=== PATIENT | female | born 1945 | race Caucasian/White ===

== ENCOUNTER → 2016-05-31 | Outpatient (REF) | payer MEDICARE ==
[~2016-05-31] MED LIST: AMBI5TAB PO; ASPI1TAB PO; CALC600T7 PO; GABA300C3 PO; GLIM2TA PO; GLUCTAB PO; IBUP60TA PO; LABE30TA PO; OXYC1TAB15 PO; OXYC1TAB23 PO; PAXI10TA2 PO; PAXI20TA3 PO; PROTPAK PO; SOMA350T PO; VITA400C35 PO; VITA500C24 PO; ZOCO40TA PO
[2016-05-31 13:27] LABS: ALBUMIN 4.3 GM/DL (3.2-5.2); ALBUMIN/GLOBULIN RATIO 1.54 (1.00-1.93); ALKALINE PHOSPHATASE 111 U/L (45-117); ALT/SGPT 21 U/L (12-78); ANION GAP 9 MEQ/L (8-16); AST/SGOT 14 U/L (15-37); BILIRUBIN,TOTAL 0.6 MG/DL (0.2-1.0); BLOOD UREA NITROGEN 22 MG/DL (7-18); CALCIUM LEVEL 9.7 MG/DL (8.8-10.2); CARBON DIOXIDE LEVEL 28 MEQ/L (21-32); CHLORIDE LEVEL 107 MEQ/L (98-107); CREATININE FOR GFR 0.85 MG/DL (0.55-1.02); GLOMERULAR FILTRATION RATE > 60.0 (>45); GLUCOSE, FASTING 108 MG/DL (80-110); POTASSIUM SERUM 4.4 MEQ/L (3.5-5.1); SODIUM LEVEL 144 MEQ/L (136-145); TOTAL PROTEIN 7.1 GM/DL (6.4-8.2)
== END ==
LOC: M SFHCPLAZ 08:12
PROVIDERS: ATTEND Family Medicine
DX: E55.9 Vitamin D deficiency, unspecified (principal); E11.9 Type 2 diabetes mellitus without complications; I10 Essential (primary) hypertension

== ENCOUNTER → 2016-06-07 | Outpatient (REF) | payer MEDICARE | LOC: M SFHCPLAZ 11:14 | PROVIDERS: ATTEND Family Medicine ==

== ENCOUNTER → 2016-06-08 | Outpatient (CLI) | payer MEDICARE | LOC: M PAIN 14:20 | PROVIDERS: ATTEND Nurse Practitioner Family | DX: Z09 Encounter for follow-up examination after completed treatment for conditions other than malignant neoplasm (principal); G89.29 Other chronic pain; M47.816 Spondylosis without myelopathy or radiculopathy, lumbar region; I10 Essential (primary) hypertension; E78.5 Hyperlipidemia, unspecified; E11.9 Type 2 diabetes mellitus without complications; F32.9 Major depressive disorder, single episode, unspecified; F41.9 Anxiety disorder, unspecified; M50.30 Other cervical disc degeneration, unspecified cervical region; E66.9 Obesity, unspecified; Z68.26 Body mass index [BMI] 26.0-26.9, adult; M85.80 Other specified disorders of bone density and structure, unspecified site; E55.9 Vitamin D deficiency, unspecified; M16.12 Unilateral primary osteoarthritis, left hip; M48.06 Spinal stenosis, lumbar region; M51.27 Other intervertebral disc displacement, lumbosacral region; Z88.8 Allergy status to other drugs, medicaments and biological substances; Z79.82 Long term (current) use of aspirin; Z79.1 Long term (current) use of non-steroidal anti-inflammatories (NSAID); Z79.891 Long term (current) use of opiate analgesic; Z79.84 Long term (current) use of oral hypoglycemic drugs; Z79.899 Other long term (current) drug therapy; Z86.73 Personal history of transient ischemic attack (TIA), and cerebral infarction without residual deficits; Z87.891 Personal history of nicotine dependence ==

== ENCOUNTER → 2016-08-15 | Outpatient (CLI) | payer MEDICARE ==
--- NOTE | 2016-08-15 23:50 | ECWPNPC ---
PATIENT NAME: MAXI FELICIANO : 1945 GENDER: FEMALE VISIT DATE: 08/15/2016 DISCHARGE DATE: 08/15/16 1536 VISIT LOCKED DATE TIME: PHYSICIAN: ALEXIS QUINTERO PHYSICIAN PAGER NO: [phone] RESOURCE: ALEXIS QUINTERO HISTORY OF PRESENT ILLNESS HISTORY OF PRESENT ILLNESS: PAIN THE PATIENT DESCRIBES THE PAIN... THE PATIENT DESCRIBES THE PAIN... THE PATIENT DESCRIBES THE PAIN... THE PATIENT DESCRIBES THE PAIN... THE PATIENT DESCRIBES THE PAIN... HERE FOR F/U AND MANAGEMENT OF PERSISTENT LEFT HIP AND LEG PAIN.USING PERCOCET7.5/325 1 TAB Q6H PRN FOR SEVERE PAIN THAT SHE FINDS HELPFUL.DENIES SIDE EFFECTS. ALSO USES ROBAXIN PRN WITH IMPROVEMENT WITH SLEEP.PATIENT IS UNABLE TO TOLERATE ANY WEIGHT ON LEFT LEG AND IS WHEELCHAIR DEPENDENT. .BEING EVALUATED AT DR. MANUEL FOR BOTOX .RATING PAIN VAS 6/10. FALL RISK SCREENING: SCREENING :NO FALLS IN THE PAST YEAR CURRENT MEDICATIONS TAKING ASPIRIN 81 MG TABLET CHEWABLE 1 TABLET ORALLY ONCE A DAY TAKING VITAMIN E 400 UNIT CAPSULE 1 TABLET ORALLY ONCE A DAY TAKING VITAMIN C 500 MG TABLET 1 TABLET ORALLY ONCE A DAY TAKING IBUPROFEN 600 MG TABLET 1 TABLET ORALLY THREE TIMES A DAY NEEDED TAKING WHEELCHAIR FOLDING WITH SWING-AWAY FOOT RESTS MISCELLANEOUS DIRECTED LIGHTWEIGHT _M47.816; M16.9 TAKING LABETALOL HCL 300 MG TABLET 1.5 TAB QAM AND 1 TAB Q PM ORALLY TWICE A DAY TAKING CALCIUM 600 + D 600-400 MG-UNIT TABLET 1 TABLET ORALLY TWICE A DAY TAKING ATORVASTATIN CALCIUM 80 MG TABLET 1 TABLET ORALLY ONCE A DAY TAKING GABAPENTIN 600 MG TABLET 1 TABLET ORALLY THREE TIMES A DAY TAKING ROPINIROLE HCL 0.25 MG TABLET DIRECTED ORALLY BEFORE BEDTIME TAKING PAXIL 20 MG TABLET 1 TABLET IN THE MORNING ORALLY ONCE A DAY TAKING GLUCOPHAGE XR 500 MG TABLET EXTENDED RELEASE 24 HOUR 1 TABLET WITH EVENING MEAL ORALLY BID TAKING PERCOCET 7.5-325 MG TABLET 1 TABLET NEEDED ORALLY 1 Q6H PRN MDD4 TAKING METHOCARBAMOL 500 MG TABLET 1 TABLETS ORALLY Q8H PRN MDD3 NOT-TAKING LASIX 20 MG TABLET 1 TABLET ORALLY ONCE A DAY NOT-TAKING FOSAMAX 70 MG TABLET 1 TABLET ORALLY WEEKLY NOT-TAKING EQL VITAMIN D-3 2000 UNITS TABLET 2 TABS ORALLY QD MEDICATION LIST REVIEWED AND RECONCILED WITH THE PATIENT PAST MEDICAL HISTORY 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 HYPERTENSION-MILD LAE 35 MM, MILD DIASTOLIC DYSFUNCTION, LVEF 65%BY 11/2007 TTE-KIDD HYPERLIPIDEMIA 2B T2DM NID HISTORY OF NICOTINE ADDICTION DEPRESSION/ANXIETY DISORDER 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 CT SHOWING MULTILEVEL DISEASE, MILD ANTERIOR LISTHESIS C3/C4, C4/C5 OBESITY OSTEOPENIA VITAMIN D DEFICIENCY L HIP ADVANCED HIP OA C JOINT SPACE OBLITERATION AND ACETABULAR REMODELING BY 12/2014 XRAY MULTI-LEVEL LUMBAR DJD C MINIMAL CANAL CC STENOSIS L3-5 C B L4 COMPRESSION IN NF AND DIFFUSE L5/S1 BULGE C B L5 COMPRESSION IN NF BY 07/2013 MRI S/P L4/5 OBLIQUE LATERAL INTERBODY FUSION 05/10/2014-CHELSEA Hester LATERAL THIGH LIPOMA, EXCISED 08/2009, 01/2012-LIYA Davenport ICA PROXIMAL 50% STENOSIS BY 11/2007 MRA L KNEE ADVANCED TRICOMPARTMENTAL OA BY 12/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 NO . CHILLS NO . FEVER NO . INFECTION: DO YOU HAVE NEW INFECTIONS? NO . DO YOU HAVE HISTORY OF MRSA? NO . MUSCULOSKELETAL: ANY NEW PATTERNS OF PAIN OR NUMBNESS? NO . GASTROENTEROLOGY: ANY NEW CHANGE IN BOWEL CONTROL? NO . GENITOURINARY: ANY NEW CHANGE IN BLADDER CONTROL? NO . IS THERE A CHANCE YOU COULD BE ? NO . HEMATOLOGY/LYMPH: DO YOU TAKE ANY BLOOD THINNERS? (FOR EXAMPLE- COUMADIN, PLAVIX, AGGRENOX, PLATEL, PRADAXA, OR XARELTO) NO . WHEN WAS YOUR LAST DOSE? DATE: TIME: . NEUROLOGY: HAVE YOU FALLEN IN THE PAST 6 MONTHS? NO . ANY NEW EXTREMITY NUMBNESS OR WEAKNESS? NO . CARDIOLOGY: DO YOU HAVE A PACEMAKER OR DEFIBRILLATOR? NO . RESPIRATORY: HAVE YOU BEEN SICK IN THE PAST WEEK? NO . FEVER NO . FLU LIKE SYMPTOMS? NO . COUGH NO . INTEGUMENTARY: DO YOU HAVE ANY RASHES OR OPEN SORES? NO . ALLERGIC/IMMUNO: ARE YOU ALLERGIC TO SHELLFISH OR IV DYE? NO . ANY NEW ALLERGIES? NO . PSYCHIATRIC: DO YOU HAVE THOUGHTS OF HURTING YOURSELF OR SOMEONE ELSE? NO . ARE YOU ABUSED, NEGLECTED, OR IN AN UNSAFE ENVIRONMENT? NO . ENDOCRINOLOGY: ARE YOU DIABETIC? YES . OTHER: DO YOU NEED ANY PRESCRIPTIONS? NO . IF YES, PLEASE LIST: ____ . ANY NEW PROBLEMS WITH YOUR MEDICATIONS? NO . WHEN DID YOU LAST EAT? ____ . WHEN DID YOU LAST DRINK? ____ . WHAT DID YOU LAST DRINK? ____ . NAME OF PERSON DRIVING YOU HOME? ____ . DO YOU HAVE ANY OTHER QUESTIONS OR CONCERNS NO . REVIEWED BY: PROVIDER: ALEXIS LAMAR . VITAL SIGNS WT 145 LBS, HT 62 IN, BMI 26.52 INDEX, BP 128/69 MM HG, HR 66 /MIN, RR 16 /MIN, TEMP 98.9 F, OXYGEN SAT % 95%, NA INITIALS SC 15:08, REVIEWED BY: CARLOS. EXAMINATION GENERAL EXAMINATION: LUNGS:LUNG SOUNDS ARE CLEAR. HEART:HEART RATE REGULAR. MUSCULOSKELETAL:*, MUSCLE STRENGTH TESTING 5/5 RIGHT.3/5 LEFT. PAIN WITH PALPATION LEFT HIP.PARATHESIAS TO LIGHT TOUCH LEFT LEG. ASSESSMENTS CHRONIC PRESCRIPTION OPIATE USE - Z79.891 (PRIMARY) LEG PARESTHESIA - R20.2 HIP PAIN, LEFT - M25.552 TREATMENT CHRONIC PRESCRIPTION OPIATE USE REFILL METHOCARBAMOL TABLET, 500 MG, 1 TABLETS, ORALLY, Q8H PRN MDD3, 30 DAY(S), 90, REFILLS 1 REFILL PERCOCET TABLET, 7.5-325 MG, 1 TABLET NEEDED, ORALLY, 1 Q6H PRN MDD4, 30 DAY(S), 120, REFILLS 0 NOTES: ISTOP REGISTRY REVIEWED AND DEMNOSTRATES COMPLLIANCE. BRINGS IN MEDICATIONS WHICH IS APPROPRIATE FOR WHAT WAS DISPENSED. RECENT URINE TOXICOLOGY REVIEWED. NO UNAUTHORIZED MEDICATIONS. NO ILLICIT SUBSTANCES AND PRESCRIBED MEDICATIONS WERE PRESENT. , PATIENT WAS ADVISED TO START A WALKING PROGRAM TO STRENGTHEN LUMBAR PARASPINAL MUSCLES AND IMPROVE MOBILITY. THEY WERE ADVISED THAT THIS WILL IMPROVE WEIGHT LOSS AND ALSO DEPRESSION/FIBROMYALGIA SYMPTOMS. ADVISED TO WALK 10 MINUTES EVERY OTHER DAY ON A FLAT SURFACE. EMPHASIZED THE IMPORTANCE OF DOING THIS CONSISTANTLY AND NOT SPORATICALLY TO AVOID INJURY. STRONG ADVISED NOT TO DO MORE THAN 10 MINUTES EVERY OTHER DSY FOR THE FIRST 4 WEEKS., RISKS AND BENEFITS OF NARCOTIC/OPIOD MEDICATIONS WERE REVIEWED WITH PATIENT - THIS INCLUDES BUT IS NOT LIMITED TO RISK OF DEPENDANCE/DEVELOPMENT OF ADDICTION, MOOD DISTURBANCE AND DEPRESSION, OSTEOPOROSIS, HORMONAL AND LABIDAL CHANGES, RESPIRATORY DEPRESSION AND . PATIENT IS ADVISED NOT TO DRIVE WHILE ON THESE MEDICATIONS. PROCEDURE CODES FA211 ESTABILISHED PATIENT [facility] FACILITY CHARGE G8783 BP SCR PRFRM RCMDD DEFIND SCR INTVL G8730 PAIN ASSESS POS TOOL F/U PLAN DOC 3016F PT SCRND UNHLTHY [place] USE 1123F ACP DISCUSS/DSCN MKR DOCD 1036F TOBACCO NON-USER 0518F FALL PLAN OF CARE DOCD G8427 DOC MEDS VERIFIED W/PT OR RE G8420 BMI<30 AND >=22 CALC & DOCU 3288F FALL RISK ASSESSMENT DOCD DISPOSITION & COMMUNICATION FOLLOW UP 2 MONTHS ELECTRONICALLY SIGNED BY BRIANDA LOMELI ON 08/15/2016 AT 03:49 PM EDT DISCLAIMER : THIS IS A VISIT SUMMARY EXTRACTED FROM THE [employer] CHART. IT IS NOT A COPY OF THE [employer] PROGRESS NOTE. VIBHA
== END ==
LOC: M PAIN 15:00
PROVIDERS: ATTEND Nurse Practitioner Family
DX: Z09 Encounter for follow-up examination after completed treatment for conditions other than malignant neoplasm (principal); G89.29 Other chronic pain; R20.2 Paresthesia of skin; M25.552 Pain in left hip; E11.9 Type 2 diabetes mellitus without complications; I10 Essential (primary) hypertension; M16.9 Osteoarthritis of hip, unspecified; E78.5 Hyperlipidemia, unspecified; I77.9 Disorder of arteries and arterioles, unspecified; M85.80 Other specified disorders of bone density and structure, unspecified site; E55.9 Vitamin D deficiency, unspecified; M47.816 Spondylosis without myelopathy or radiculopathy, lumbar region; F32.9 Major depressive disorder, single episode, unspecified; Z79.82 Long term (current) use of aspirin; Z79.1 Long term (current) use of non-steroidal anti-inflammatories (NSAID); Z79.84 Long term (current) use of oral hypoglycemic drugs; Z79.899 Other long term (current) drug therapy; Z87.891 Personal history of nicotine dependence

== ENCOUNTER → 2016-10-04 | Outpatient (REF) | payer MEDICARE ==
[~2016-10-04] MED LIST changes: +GABA-282 PO; -GABA300C3 PO
[2016-10-04 12:51] LABS: ALBUMIN/GLOBULIN RATIO 1.21 (1.00-1.93); ALKALINE PHOSPHATASE 113 U/L (45-117); ALT/SGPT 28 U/L (12-78); ANION GAP 8 MEQ/L (8-16); AST/SGOT 22 U/L (15-37); BILIRUBIN,TOTAL 0.6 MG/DL (0.2-1.0); BLOOD UREA NITROGEN 15 MG/DL (7-18); CALCIUM LEVEL 9.1 MG/DL (8.8-10.2); CARBON DIOXIDE LEVEL 29 MEQ/L (21-32); CHLORIDE LEVEL 107 MEQ/L (98-107); CHOLESTEROL LEVEL 129 MG/DL (<200); CREATININE FOR GFR 0.83 MG/DL (0.55-1.02); GLOMERULAR FILTRATION RATE > 60.0 (>45); GLUCOSE, FASTING 128 MG/DL (80-110); MAGNESIUM LEVEL 2.2 MG/DL (1.8-2.4); SODIUM LEVEL 144 MEQ/L (136-145); TOTAL PROTEIN 7.3 GM/DL (6.4-8.2); TRIGLYCERIDES LEVEL 262 MG/DL (<150)
== END ==
LOC: M SFHCPLAZ 09:18
PROVIDERS: ATTEND Family Medicine
DX: E11.9 Type 2 diabetes mellitus without complications (principal); E78.5 Hyperlipidemia, unspecified; I10 Essential (primary) hypertension; E55.9 Vitamin D deficiency, unspecified

== ENCOUNTER → 2016-10-10 | Outpatient (REF) | payer MEDICARE ==
[2016-10-10 13:58] LABS: CALCIUM OXALATE CRYSTALS LARGE
== END ==
LOC: M LAB REF 13:24
PROVIDERS: ATTEND Family Medicine
DX: E11.9 Type 2 diabetes mellitus without complications (principal)

== ENCOUNTER → 2016-10-12 | Outpatient (CLI) | payer MEDICARE ==
[~2016-10-12] MED LIST changes: +ALEV220T26 PO; +ATOR1TAB18 PO; +OSCA200T PO; +ROBA500T PO; +VITA100037 PO
--- NOTE | 2016-10-13 00:58 | ECWPNPC ---
PATIENT NAME: MAXI FELICIANO : 1945 GENDER: FEMALE VISIT DATE: 10/12/2016 DISCHARGE DATE: 10/12/16 1506 VISIT LOCKED DATE TIME: PHYSICIAN: ALEXIS QUINTERO PHYSICIAN PAGER NO: [phone] RESOURCE: ALEXIS QUINTERO REASON FOR APPOINTMENT 1. LEGS,HIP, KNEE HISTORY OF PRESENT ILLNESS HISTORY OF PRESENT ILLNESS: PAIN THE PATIENT DESCRIBES THE PAIN... THE PATIENT DESCRIBES THE PAIN... THE PATIENT DESCRIBES THE PAIN... THE PATIENT DESCRIBES THE PAIN... THE PATIENT DESCRIBES THE PAIN... THE PATIENT DESCRIBES THE PAIN... HERE FOR F/U AND MANAGEMENT OF PERSISTENT LEFT HIP AND LEG PAIN.USING PERCOCET7.5/325 1 TAB Q6H PRN FOR SEVERE PAIN THAT SHE FINDS HELPFUL.STATES MEDICATION DOESNT SEEM TO BE EFFECTIVE.DENIES SIDE EFFECTS. ALSO USES ROBAXIN PRN WITH IMPROVEMENT WITH SLEEP.PATIENT USES WALKER OR WHEELCHAIR. WILL BE STARTING BOTOX TREATMENT WITH DR. MANUEL NEXT MONTH. .RATING PAIN VAS 6-9/10.STATES LEFT HIP HAS BECOME MORE PAINFUL PAST MONTH.DOING PT DAILY. FALL RISK SCREENING: SCREENING :NO FALLS IN THE PAST YEAR CURRENT MEDICATIONS TAKING LABETALOL HCL 300 MG TABLET 1.5 TAB QAM AND 1 TAB Q PM ORALLY TWICE A DAY TAKING LASIX 20 MG TABLET 1 TABLET ORALLY ONCE A DAY TAKING PERCOCET 7.5-325 MG TABLET 1 TABLET NEEDED ORALLY EVERY 6 HRS (FOWLER) TAKING ATORVASTATIN CALCIUM 80 MG TABLET 1 TABLET ORALLY ONCE A DAY TAKING GABAPENTIN 600 MG TABLET 1 TABLET ORALLY THREE TIMES A DAY TAKING EQL VITAMIN D-3 2000 UNITS TABLET 2 TABS ORALLY QD TAKING FOSAMAX 70 MG TABLET 1 TABLET ORALLY WEEKLY TAKING TUMS ULTRA 1000 1000 MG TABLET CHEWABLE 1 TAB ORALLY BID TAKING GLUCOPHAGE XR 500 MG TABLET EXTENDED RELEASE 24 HOUR 1 TABLET ORALLY AC DINNER TAKING ASPIRIN 81 MG TABLET CHEWABLE 1 TABLET ORALLY ONCE A DAY TAKING VITAMIN E 400 UNIT CAPSULE 1 TABLET ORALLY ONCE A DAY TAKING VITAMIN C 500 MG TABLET 1 TABLET ORALLY ONCE A DAY TAKING WHEELCHAIR FOLDING WITH SWING-AWAY FOOT RESTS MISCELLANEOUS DIRECTED LIGHTWEIGHT _M47.816; M16.9 TAKING ROPINIROLE HCL 0.25 MG TABLET DIRECTED ORALLY BEFORE BEDTIME TAKING PAXIL 20 MG TABLET 1 TABLET IN THE MORNING ORALLY ONCE A DAY TAKING METHOCARBAMOL 500 MG TABLET 1 TABLETS ORALLY Q8H PRN MDD3 MEDICATION LIST REVIEWED AND RECONCILED WITH THE PATIENT PAST MEDICAL HISTORY 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 HYPERTENSION-MILD LAE 35 MM, MILD DIASTOLIC DYSFUNCTION, LVEF 65%BY 11/2007 TTE-KIDD HYPERLIPIDEMIA 2B T2DM NID HISTORY OF NICOTINE ADDICTION DEPRESSION/ANXIETY DISORDER 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 CT SHOWING MULTILEVEL DISEASE, MILD ANTERIOR LISTHESIS C3/C4, C4/C5 OBESITY OSTEOPENIA VITAMIN D DEFICIENCY L HIP ADVANCED HIP OA C JOINT SPACE OBLITERATION AND ACETABULAR REMODELING BY 12/2014 XRAY MULTI-LEVEL LUMBAR DJD C MINIMAL CANAL CC STENOSIS L3-5 C B L4 COMPRESSION IN NF AND DIFFUSE L5/S1 BULGE C B L5 COMPRESSION IN NF BY 07/2013 MRI S/P L4/5 OBLIQUE LATERAL INTERBODY FUSION 05/10/2014-CHELSEA Hester LATERAL THIGH LIPOMA, EXCISED 08/2009, 01/2012-LIYA Davenport ICA PROXIMAL 50% STENOSIS BY 11/2007 MRA L KNEE ADVANCED TRICOMPARTMENTAL OA BY 12/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 NO . CHILLS NO . FEVER NO . INFECTION: DO YOU HAVE NEW INFECTIONS? NO . DO YOU HAVE HISTORY OF MRSA? NO . MUSCULOSKELETAL: ANY NEW PATTERNS OF PAIN OR NUMBNESS? YES, PT STATES LEFT HIP MORE SEVERE . GASTROENTEROLOGY: ANY NEW CHANGE IN BOWEL CONTROL? NO . GENITOURINARY: ANY NEW CHANGE IN BLADDER CONTROL? NO . IS THERE A CHANCE YOU COULD BE ? NO . HEMATOLOGY/LYMPH: DO YOU TAKE ANY BLOOD THINNERS? (FOR EXAMPLE- COUMADIN, PLAVIX, AGGRENOX, PLATEL, PRADAXA, OR XARELTO) NO . WHEN WAS YOUR LAST DOSE? DATE: TIME: . NEUROLOGY: HAVE YOU FALLEN IN THE PAST 6 MONTHS? NO . ANY NEW EXTREMITY NUMBNESS OR WEAKNESS? NO . CARDIOLOGY: DO YOU HAVE A PACEMAKER OR DEFIBRILLATOR? NO . RESPIRATORY: HAVE YOU BEEN SICK IN THE PAST WEEK? NO . FEVER NO . FLU LIKE SYMPTOMS? NO . COUGH NO . INTEGUMENTARY: DO YOU HAVE ANY RASHES OR OPEN SORES? NO . ALLERGIC/IMMUNO: ARE YOU ALLERGIC TO SHELLFISH OR IV DYE? NO . ANY NEW ALLERGIES? NO . PSYCHIATRIC: DO YOU HAVE THOUGHTS OF HURTING YOURSELF OR SOMEONE ELSE? NO . ARE YOU ABUSED, NEGLECTED, OR IN AN UNSAFE ENVIRONMENT? NO . ENDOCRINOLOGY: ARE YOU DIABETIC? YES . OTHER: DO YOU NEED ANY PRESCRIPTIONS? YES, PERCOSET . IF YES, PLEASE LIST: ____ . ANY NEW PROBLEMS WITH YOUR MEDICATIONS? NO . WHEN DID YOU LAST EAT? ____ . WHEN DID YOU LAST DRINK? ____ . WHAT DID YOU LAST DRINK? ____ . NAME OF PERSON DRIVING YOU HOME? ____ . DO YOU HAVE ANY OTHER QUESTIONS OR CONCERNS NO . REVIEWED BY: PROVIDER: ALEXIS LAMAR . VITAL SIGNS WT 143 LBS, HT 62 IN, BMI 26.15 INDEX, BP 133/62 MM HG, HR 69 /MIN, RR 18 /MIN, TEMP 97.4 F, OXYGEN SAT % 97%, SAFE IN ENV? (Y/N) Y, NA INITIALS AW 1405, REVIEWED BY: EM. EXAMINATION GENERAL EXAMINATION: LUNGS:LUNG SOUNDS ARE CLEAR. HEART:HEART RATE REGULAR. MUSCULOSKELETAL:*, MUSCLE STRENGTH TESTING 5/5 RIGHT.3/5 LEFT. PAIN WITH PALPATION LEFT HIP.PARATHESIAS TO LIGHT TOUCH LEFT LEG. ASSESSMENTS CHRONIC PRESCRIPTION OPIATE USE - Z79.891 (PRIMARY) LEG PARESTHESIA - R20.2 HIP PAIN, LEFT - M25.552 TREATMENT CHRONIC PRESCRIPTION OPIATE USE REFILL PERCOCET TABLET, 7.5-325 MG, 1 TABLET NEEDED, ORALLY, Q6H PRN MDD4, 30 DAY(S), 120, REFILLS 0 CONTINUE METHOCARBAMOL TABLET, 500 MG, 1 TABLETS, ORALLY, Q8H PRN MDD3 CONTINUE GABAPENTIN TABLET, 600 MG, 1 TABLET, ORALLY, THREE TIMES A DAY NOTES: ISTOP REGISTRY REVIEWED AND DEMNOSTRATES COMPLLIANCE. BRINGS IN MEDICATIONS WHICH IS APPROPRIATE FOR WHAT WAS DISPENSED. RECENT URINE TOXICOLOGY REVIEWED. NO UNAUTHORIZED MEDICATIONS. NO ILLICIT SUBSTANCES AND PRESCRIBED MEDICATIONS WERE PRESENT. , RISKS AND BENEFITS OF NARCOTIC/OPIOD MEDICATIONS WERE REVIEWED WITH PATIENT - THIS INCLUDES BUT IS NOT LIMITED TO RISK OF DEPENDANCE/DEVELOPMENT OF ADDICTION, MOOD DISTURBANCE AND DEPRESSION, OSTEOPOROSIS, HORMONAL AND LABIDAL CHANGES, RESPIRATORY DEPRESSION AND . PATIENT IS ADVISED NOT TO DRIVE WHILE ON THESE MEDICATIONS. PROCEDURE CODES FA211 ESTABILISHED PATIENT [facility] FACILITY CHARGE G8730 PAIN ASSESS POS TOOL F/U PLAN DOC G8427 DOC MEDS VERIFIED W/PT OR RE DISPOSITION & COMMUNICATION FOLLOW UP 2 MONTHS ELECTRONICALLY SIGNED BY BRIANDA LOMELI ON 10/12/2016 AT 03:05 PM EDT DISCLAIMER : THIS IS A VISIT SUMMARY EXTRACTED FROM THE [employer] CHART. IT IS NOT A COPY OF THE [employer] PROGRESS NOTE. VIBHA
== END ==
LOC: M PAIN 14:00
PROVIDERS: ATTEND Nurse Practitioner Family
DX: G89.29 Other chronic pain (principal); R20.2 Paresthesia of skin; M16.12 Unilateral primary osteoarthritis, left hip; M17.12 Unilateral primary osteoarthritis, left knee; I10 Essential (primary) hypertension; E78.5 Hyperlipidemia, unspecified; E11.9 Type 2 diabetes mellitus without complications; F32.9 Major depressive disorder, single episode, unspecified; F41.9 Anxiety disorder, unspecified; M85.80 Other specified disorders of bone density and structure, unspecified site; E55.9 Vitamin D deficiency, unspecified; I77.9 Disorder of arteries and arterioles, unspecified; Z88.8 Allergy status to other drugs, medicaments and biological substances; Z79.84 Long term (current) use of oral hypoglycemic drugs; Z79.82 Long term (current) use of aspirin; Z79.899 Other long term (current) drug therapy; Z87.891 Personal history of nicotine dependence

== ENCOUNTER 2016-10-15 22:17 | Emergency (ER) | payer MEDICARE ==
[~2016-10-15] VITALS: Ht 157.5 cm; Wt 64.9 kg
[~2016-10-15 22:17] MED LIST changes: -ALEV220T26 PO; -ATOR1TAB18 PO; -OSCA200T PO; -ROBA500T PO; -VITA100037 PO
[2016-10-15] MEDS ORDERED: HYDROmorphone HCL 1 MG/ML SYRINGE (J1170) IM ONE (23:00)
[2016-10-15 23:28] VITALS: BP 182/77
[2016-10-31] MEDS ORDERED: VITA100037 PO (15:54)
[2016-10-31] MEDS ORDERED: ATOR1TAB18 PO (15:54)
[2016-10-31] MEDS ORDERED: OSCA200T PO (15:54)
[2016-10-31] MEDS ORDERED: ALEV220T26 PO (15:54)
[2016-10-31] MEDS ORDERED: ROBA500T PO (15:54)
== END 2016-10-15 23:31 | disposition home or self-care (01) ==
LOC: EDBD 22:17 → M ED 22:52
DX: G89.29 Other chronic pain (principal); M79.604 Pain in right leg; M79.605 Pain in left leg; I10 Essential (primary) hypertension; M19.90 Unspecified osteoarthritis, unspecified site; Z86.73 Personal history of transient ischemic attack (TIA), and cerebral infarction without residual deficits; Z79.82 Long term (current) use of aspirin; Z79.84 Long term (current) use of oral hypoglycemic drugs; Z79.899 Other long term (current) drug therapy; Z88.8 Allergy status to other drugs, medicaments and biological substances
CPT/HCPCS: 96372; 99283; J1170

== ENCOUNTER → 2016-11-07 | Day surgery (SDC) | payer MEDICARE ==
[~2016-11-07] VITALS: Ht 160 cm; Wt 64.9 kg
[~2016-11-07] MED LIST changes: +ACETAMINOPHEN 325 MG TAB PO PRN; +ALEV220T26 PO; +ATOR1TAB18 PO; +AcetaZOLAMIDE 500 MG ER CAP PO ONE; +BSS with VANC/TOB/EPI for EYE CASES IR ONE; +CYCLOPENTOLATE 2% OPHTH SOLN 2ML BTL XX ONE; +HEALON DUET (HEALON 10MG/ML 0.55ML & HEALON ENDOCOAT 30MG/ML 0.85ML) As Ordered ONE; +KETOROLAC 0.5% OPHTH SOLN OD ONE; +LIDOCAINE 1% SDV 5 ML VIAL As Ordered ONE; +LIDOCAINE 4% INJ 5 ML AMP OU ONE; +LR 500 ML IV ONE; +MIDAZOLAM INJ 2 MG/2 ML VIAL (J2250) As Ordered ONE; +MOXIFLOXACIN IN BSS 0.25MG/0.25ML INTRACAMERAL INJ (OR EYE ONLY)(J2280) As Ordered ONE; +OFLOXACIN 0.3 % (OCUFLOX) OPTH SOL 5ML XX ONE; +OSCA200T PO; +PHENYLEPHRINE 2.5% OPHTH SOL 2ML XX ONE; +POVIDONE-IODINE 5% OPHTH PREP SOL 30ML As Ordered ONE; +PROPARACAINE 0.5% OPHTH SOL 15ML OD PRN; +ROBA500T PO; +TRIAMCINOLONE PRES FR 40 MG/ML 1ML(TRIESENCE)(OR EYE ONLY)(J3300 PER 1MG) As Ordered ONE; +TRIMETHOBENZAMIDE 300 MG CAP PO PRN; +TROPICAMIDE 1% OPHTH SOLN 2ML XX ONE; +VITA100037 PO
[2016-11-07 11:15] VITALS: BP 113/63
== END | disposition home or self-care (01) ==
LOC: M SDC 08:20
PROVIDERS: ATTEND Ophthalmology
DX: H25.11 Age-related nuclear cataract, right eye (principal); E11.9 Type 2 diabetes mellitus without complications; I10 Essential (primary) hypertension; I77.9 Disorder of arteries and arterioles, unspecified; M47.816 Spondylosis without myelopathy or radiculopathy, lumbar region; E78.5 Hyperlipidemia, unspecified
CPT/HCPCS: 66984; J2250; J2280; J3300; V2632

== ENCOUNTER → 2016-11-14 | Day surgery (SDC) | payer MEDICARE ==
[~2016-11-14] VITALS: Ht 160 cm; Wt 64.9 kg
[~2016-11-14] MED LIST changes: -ATOR1TAB18 PO; +ATOR80TA59 PO; +CYCLOPENTOLATE 2% OPHTH SOLN 2ML BTL OS ONE; -CYCLOPENTOLATE 2% OPHTH SOLN 2ML BTL XX ONE; +GLUCAPHAGE; -KETOROLAC 0.5% OPHTH SOLN OD ONE; +KETOROLAC 0.5% OPHTH SOLN OS ONE; +LASI20TA PO; -LR 500 ML IV ONE; +OFLOXACIN 0.3 % (OCUFLOX) OPTH SOL 5ML OS ONE; -OFLOXACIN 0.3 % (OCUFLOX) OPTH SOL 5ML XX ONE; +PAXI10TA12 PO; -PAXI10TA2 PO; +PAXI20TA29 PO; -PAXI20TA3 PO; +PHENYLEPHRINE 2.5% OPHTH SOL 2ML OS ONE; -PHENYLEPHRINE 2.5% OPHTH SOL 2ML XX ONE; -PROPARACAINE 0.5% OPHTH SOL 15ML OD PRN; +PROPARACAINE 0.5% OPHTH SOL 15ML OS PRN; +ROPI0.25 PO; +TROPICAMIDE 1% OPHTH SOLN 2ML OS ONE; -TROPICAMIDE 1% OPHTH SOLN 2ML XX ONE; -VITA100037 PO; +VITA100067 PO; +VITA200038 PO; +fentaNYL 100 MCG/2 ML INJECTION (J3010) As Ordered ONE
[2016-11-14 14:20] VITALS: BP 122/58
== END | disposition home or self-care (01) ==
LOC: M SDC 11:33
PROVIDERS: ATTEND Ophthalmology
DX: H26.9 Unspecified cataract (principal); I10 Essential (primary) hypertension; E78.00 Pure hypercholesterolemia, unspecified; E11.9 Type 2 diabetes mellitus without complications; R29.898 Other symptoms and signs involving the musculoskeletal system; M12.9 Arthropathy, unspecified; M54.9 Dorsalgia, unspecified; M24.569 Contracture, unspecified knee; F32.9 Major depressive disorder, single episode, unspecified; R51 Headache; I69.998 Other sequelae following unspecified cerebrovascular disease; Z88.8 Allergy status to other drugs, medicaments and biological substances; Z79.899 Other long term (current) drug therapy; Z79.82 Long term (current) use of aspirin; Z99.3 Dependence on wheelchair; Z90.10 Acquired absence of unspecified breast and nipple; Z98.51 Tubal ligation status; Z87.891 Personal history of nicotine dependence
CPT/HCPCS: 66984; J2250; J2280; J3010; J3300; V2632

== ENCOUNTER → 2016-12-10 | Outpatient (CLI) | payer MEDICARE ==
[~2016-12-10] MED LIST changes: -ACETAMINOPHEN 325 MG TAB PO PRN; -AcetaZOLAMIDE 500 MG ER CAP PO ONE; -BSS with VANC/TOB/EPI for EYE CASES IR ONE; -CYCLOPENTOLATE 2% OPHTH SOLN 2ML BTL OS ONE; -HEALON DUET (HEALON 10MG/ML 0.55ML & HEALON ENDOCOAT 30MG/ML 0.85ML) As Ordered ONE; -KETOROLAC 0.5% OPHTH SOLN OS ONE; -LIDOCAINE 1% SDV 5 ML VIAL As Ordered ONE; -LIDOCAINE 4% INJ 5 ML AMP OU ONE; -MIDAZOLAM INJ 2 MG/2 ML VIAL (J2250) As Ordered ONE; -MOXIFLOXACIN IN BSS 0.25MG/0.25ML INTRACAMERAL INJ (OR EYE ONLY)(J2280) As Ordered ONE; -OFLOXACIN 0.3 % (OCUFLOX) OPTH SOL 5ML OS ONE; -PHENYLEPHRINE 2.5% OPHTH SOL 2ML OS ONE; -POVIDONE-IODINE 5% OPHTH PREP SOL 30ML As Ordered ONE; -PROPARACAINE 0.5% OPHTH SOL 15ML OS PRN; -TRIAMCINOLONE PRES FR 40 MG/ML 1ML(TRIESENCE)(OR EYE ONLY)(J3300 PER 1MG) As Ordered ONE; -TRIMETHOBENZAMIDE 300 MG CAP PO PRN; -TROPICAMIDE 1% OPHTH SOLN 2ML OS ONE; -fentaNYL 100 MCG/2 ML INJECTION (J3010) As Ordered ONE
--- NOTE | 2016-12-10 23:04 | ECWPNPC ---
PATIENT NAME: MAXI FELICIANO : 1945 GENDER: FEMALE VISIT DATE: 12/10/2016 DISCHARGE DATE: 12/10/16 1005 VISIT LOCKED DATE TIME: PHYSICIAN: ALEXIS QUINTERO PHYSICIAN PAGER NO: [phone] RESOURCE: ALEXIS QUINTERO HISTORY OF PRESENT ILLNESS HISTORY OF PRESENT ILLNESS: PAIN THE PATIENT DESCRIBES THE PAIN... THE PATIENT DESCRIBES THE PAIN... THE PATIENT DESCRIBES THE PAIN... THE PATIENT DESCRIBES THE PAIN... THE PATIENT DESCRIBES THE PAIN... THE PATIENT DESCRIBES THE PAIN... THE PATIENT DESCRIBES THE PAIN... HERE FOR F/U AND MANAGEMENT OF PERSISTENT LEFT HIP AND LEG PAIN.USING PERCOCET7.5/325 1 TAB Q6H PRN FOR SEVERE PAIN THAT SHE FINDS HELPFUL.STATES MEDICATION DOESNT SEEM TO BE EFFECTIVE.DENIES SIDE EFFECTS. ALSO USES ROBAXIN PRN WITH IMPROVEMENT WITH SLEEP.PATIENT USES WALKER OR WHEELCHAIR. STARTED BOTOX TREATMENT WITH DR. MANUEL . .RATING PAIN VAS 6-9/10.DOING PT DAILY. FALL RISK SCREENING: SCREENING :NO FALLS IN THE PAST YEAR CURRENT MEDICATIONS TAKING LABETALOL HCL 300 MG TABLET 1.5 TAB QAM AND 1 TAB Q PM ORALLY TWICE A DAY TAKING LASIX 20 MG TABLET 1 TABLET ORALLY ONCE A DAY TAKING ATORVASTATIN CALCIUM 80 MG TABLET 1 TABLET ORALLY ONCE A DAY TAKING EQL VITAMIN D-3 2000 UNITS TABLET 2 TABS ORALLY QD TAKING FOSAMAX 70 MG TABLET 1 TABLET ORALLY WEEKLY TAKING TUMS ULTRA 1000 1000 MG TABLET CHEWABLE 1 TAB ORALLY BID TAKING GLUCOPHAGE XR 500 MG TABLET EXTENDED RELEASE 24 HOUR 1 TABLET ORALLY AC DINNER TAKING ASPIRIN 81 MG TABLET CHEWABLE 1 TABLET ORALLY ONCE A DAY TAKING VITAMIN E 400 UNIT CAPSULE 1 TABLET ORALLY ONCE A DAY TAKING VITAMIN C 500 MG TABLET 1 TABLET ORALLY ONCE A DAY TAKING WHEELCHAIR FOLDING WITH SWING-AWAY FOOT RESTS MISCELLANEOUS DIRECTED LIGHTWEIGHT _M47.816; M16.9 TAKING ROPINIROLE HCL 0.25 MG TABLET DIRECTED ORALLY BEFORE BEDTIME TAKING PAXIL 20 MG TABLET 1 TABLET IN THE MORNING ORALLY ONCE A DAY TAKING GABAPENTIN 600 MG TABLET 1 TABLET ORALLY THREE TIMES A DAY TAKING PERCOCET 7.5-325 MG TABLET 1 TABLET NEEDED ORALLY Q6H PRN MDD4 TAKING METHOCARBAMOL 500 MG TABLET 1 TABLETS ORALLY Q8H PRN MDD3 MEDICATION LIST REVIEWED AND RECONCILED WITH THE PATIENT PAST MEDICAL HISTORY 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 HYPERTENSION-MILD LAE 35 MM, MILD DIASTOLIC DYSFUNCTION, LVEF 65%BY 11/2007 TTE-KIDD HYPERLIPIDEMIA 2B T2DM NID HISTORY OF NICOTINE ADDICTION DEPRESSION/ANXIETY DISORDER 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 CT SHOWING MULTILEVEL DISEASE, MILD ANTERIOR LISTHESIS C3/C4, C4/C5 OBESITY OSTEOPENIA VITAMIN D DEFICIENCY L HIP ADVANCED HIP OA C JOINT SPACE OBLITERATION AND ACETABULAR REMODELING BY 12/2014 XRAY MULTI-LEVEL LUMBAR DJD C MINIMAL CANAL CC STENOSIS L3-5 C B L4 COMPRESSION IN NF AND DIFFUSE L5/S1 BULGE C B L5 COMPRESSION IN NF BY 07/2013 MRI S/P L4/5 OBLIQUE LATERAL INTERBODY FUSION 05/10/2014-CHELSEA Hester LATERAL THIGH LIPOMA, EXCISED 08/2009, 01/2012-LIYA Davenport ICA PROXIMAL 50% STENOSIS BY 11/2007 MRA L 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 CONSTITUTIONAL: ANY CHANGE IN YOUR MEDICAL CONDITION? NO . CHILLS NO . FEVER NO . INFECTION: DO YOU HAVE NEW INFECTIONS? NO . DO YOU HAVE HISTORY OF MRSA? NO . MUSCULOSKELETAL: ANY NEW PATTERNS OF PAIN OR NUMBNESS? NO . GASTROENTEROLOGY: ANY NEW CHANGE IN BOWEL CONTROL? NO . GENITOURINARY: ANY NEW CHANGE IN BLADDER CONTROL? NO . IS THERE A CHANCE YOU COULD BE ? NO . HEMATOLOGY/LYMPH: DO YOU TAKE ANY BLOOD THINNERS? (FOR EXAMPLE- COUMADIN, PLAVIX, AGGRENOX, PLATEL, PRADAXA, OR XARELTO) NO . WHEN WAS YOUR LAST DOSE? DATE: TIME: . NEUROLOGY: HAVE YOU FALLEN IN THE PAST 6 MONTHS? NO . ANY NEW EXTREMITY NUMBNESS OR WEAKNESS? NO . CARDIOLOGY: DO YOU HAVE A PACEMAKER OR DEFIBRILLATOR? NO . RESPIRATORY: HAVE YOU BEEN SICK IN THE PAST WEEK? NO . FEVER NO . FLU LIKE SYMPTOMS? NO . COUGH NO . INTEGUMENTARY: DO YOU HAVE ANY RASHES OR OPEN SORES? NO . ALLERGIC/IMMUNO: ARE YOU ALLERGIC TO SHELLFISH OR IV DYE? NO . ANY NEW ALLERGIES? NO . PSYCHIATRIC: DO YOU HAVE THOUGHTS OF HURTING YOURSELF OR SOMEONE ELSE? NO . ARE YOU ABUSED, NEGLECTED, OR IN AN UNSAFE ENVIRONMENT? NO . ENDOCRINOLOGY: ARE YOU DIABETIC? YES . OTHER: DO YOU NEED ANY PRESCRIPTIONS? NO . IF YES, PLEASE LIST: ____ . ANY NEW PROBLEMS WITH YOUR MEDICATIONS? NO . WHEN DID YOU LAST EAT? ____ . WHEN DID YOU LAST DRINK? ____ . WHAT DID YOU LAST DRINK? ____ . NAME OF PERSON DRIVING YOU HOME? ____ . DO YOU HAVE ANY OTHER QUESTIONS OR CONCERNS HAD BOTOX AND DID NOT HELP AT ALL. STILL NEEDS HIP DONE. CAN ONLY WALK WITH A WALKER. . VITAL SIGNS WT 140 LBS, HT 62 IN, BMI 25.60 INDEX, BP 122/70 MM HG, HR 73 /MIN, RR 18 /MIN, TEMP 98.2 F, OXYGEN SAT % 94%, NA INITIALS 09:36, REVIEWED BY: TAPAN. EXAMINATION GENERAL EXAMINATION: LUNGS:LUNG SOUNDS ARE CLEAR. HEART:HEART RATE REGULAR. MUSCULOSKELETAL:*, MUSCLE STRENGTH TESTING 5/5 RIGHT.3/5 LEFT. PAIN WITH PALPATION LEFT HIP.PARATHESIAS TO LIGHT TOUCH LEFT LEG. ASSESSMENTS CHRONIC PRESCRIPTION OPIATE USE - Z79.891 (PRIMARY) LEG PARESTHESIA - R20.2 HIP PAIN, LEFT - M25.552 TREATMENT CHRONIC PRESCRIPTION OPIATE USE REFILL PERCOCET TABLET, 7.5-325 MG, 1 TABLET NEEDED, ORALLY, Q6H PRN MDD4, 30 DAY(S), 120, REFILLS 0 CONTINUE METHOCARBAMOL TABLET, 500 MG, 1 TABLETS, ORALLY, Q8H PRN MDD3 NOTES: ISTOP REGISTRY REVIEWED AND DEMNOSTRATES COMPLLIANCE. BRINGS IN MEDICATIONS WHICH IS APPROPRIATE FOR WHAT WAS DISPENSED. RECENT URINE TOXICOLOGY REVIEWED. NO UNAUTHORIZED MEDICATIONS. NO ILLICIT SUBSTANCES AND PRESCRIBED MEDICATIONS WERE PRESENT. , FALLS CARE PLAN: 1. RECOMMEND REMOVING ALL THROW RUGS. 2. RECOMMEND NIGHT LIGHTS 3. RECOMMEND WEARING RUBBER SOLED SHOES AND TO NOT GO BAREFOOT. 4.. ADVISED TO CHANGE POSITION SLOWLY FROM SUPINE TO STANDING TO AVOID DIZZINESS. 5. ADVISED TO USE ASSISTIVE DEVICE SUCH CANE OR WALKER 6. USE [employer] SERVICES OR KEEP PORTABLE PHONE READILY AVAILABLE, RISKS AND BENEFITS OF NARCOTIC/OPIOD MEDICATIONS WERE REVIEWED WITH PATIENT - THIS INCLUDES BUT IS NOT LIMITED TO RISK OF DEPENDANCE/DEVELOPMENT OF ADDICTION, MOOD DISTURBANCE AND DEPRESSION, OSTEOPOROSIS, HORMONAL AND LABIDAL CHANGES, RESPIRATORY DEPRESSION AND . PATIENT IS ADVISED NOT TO DRIVE WHILE ON THESE MEDICATIONS. PROCEDURE CODES FA211 ESTABILISHED PATIENT [facility] FACILITY CHARGE G8783 BP SCR PRFRM RCMDD DEFIND SCR INTVL G8730 PAIN ASSESS POS TOOL F/U PLAN DOC 3016F PT SCRND UNHLTHY [place] USE 1123F ACP DISCUSS/DSCN MKR DOCD 1036F TOBACCO NON-USER 0518F FALL PLAN OF CARE DOCD G8427 DOC MEDS VERIFIED W/PT OR RE G8420 BMI<30 AND >=22 CALC & DOCU 3288F FALL RISK ASSESSMENT DOCD DISPOSITION & COMMUNICATION FOLLOW UP 2 MONTHS ELECTRONICALLY SIGNED BY BRIANDA LOMELI ON 12/10/2016 AT 10:17 AM EDT DISCLAIMER : THIS IS A VISIT SUMMARY EXTRACTED FROM THE [employer] CHART. IT IS NOT A COPY OF THE [employer] PROGRESS NOTE. VIBHA
== END ==
LOC: M PAIN 09:20
PROVIDERS: ATTEND Nurse Practitioner Family
DX: G89.29 Other chronic pain (principal); R20.2 Paresthesia of skin; M25.552 Pain in left hip; I10 Essential (primary) hypertension; E11.9 Type 2 diabetes mellitus without complications; E32.9 Disease of thymus, unspecified; F41.9 Anxiety disorder, unspecified; M85.80 Other specified disorders of bone density and structure, unspecified site; E55.9 Vitamin D deficiency, unspecified; M16.12 Unilateral primary osteoarthritis, left hip; M17.12 Unilateral primary osteoarthritis, left knee; E78.5 Hyperlipidemia, unspecified; I77.9 Disorder of arteries and arterioles, unspecified; Z88.8 Allergy status to other drugs, medicaments and biological substances; Z79.82 Long term (current) use of aspirin; Z79.84 Long term (current) use of oral hypoglycemic drugs; Z79.899 Other long term (current) drug therapy

== ENCOUNTER → 2016-12-14 | Outpatient (CLI) | payer MEDICARE ==
--- NOTE | 2016-12-14 14:23 | REPMRS ---
Patient History The patient states she had a clinical breast exam in 10/2016. Patient is postmenopausal. Family history of breast cancer in sister under age 50 and colorectal cancer in brother at age 50 or over. Digital Woman Screen Mammo: December 14, 2016 - Exam #: [id number] Bilateral CC and MLO view(s) were taken. Technologist: Bianca Baker, Technologist Prior study comparison: December 21, 2015, digital woman screen mammo performed at [facility]. December 14, 2014, digital woman screen mammo performed at [facility]. FINDINGS: There are scattered fibroglandular densities. There has been no change in the appearance of the mammogram from the prior studies. There is a mild amount of residual fibroglandular tissue which is fairly symmetric. There is no interval development of dominant mass, architectural distortion, or clustered microcalcification suggestive of malignancy. ASSESSMENT: BI-RADS/ACR category 1 mammogram. Negative. Recommendation Routine screening mammogram in 1 year (for women over age 40). This mammogram was interpreted with the aid of an FDA-approved computer-aided dectection system. Electronically Signed By: Edvin Trevino MD 12/14/16 [id number]
== END ==
LOC: M WHC 13:38
PROVIDERS: ATTEND Family Medicine
DX: Z12.31 Encounter for screening mammogram for malignant neoplasm of breast (principal); Z78.0 Asymptomatic menopausal state; Z85.3 Personal history of malignant neoplasm of breast

== ENCOUNTER 2017-01-01 13:28 | Emergency (ER) | payer MEDICARE ==
[~2017-01-01] VITALS: Ht 157.5 cm; Wt 65.0 kg
[~2017-01-01 13:28] MED LIST changes: -GLUCAPHAGE; -LASI20TA PO; -ROPI0.25 PO; -VITA200038 PO
[2017-01-01 13:33] VITALS: BP 163/98
[2017-01-01] MEDS ORDERED: LASI20TA PO (13:50)
[2017-01-01] MEDS ORDERED: ROPI0.25 PO (13:50)
[2017-01-01] MEDS ORDERED: VITA400C35 PO (13:50)
[2017-01-01] MEDS ORDERED: VITA500C24 PO (13:50)
[2017-01-01] MEDS ORDERED: LABE30TA PO ×2 (13:50)
[2017-01-01] MEDS ORDERED: VITA200038 PO (13:50)
[2017-01-01] MEDS ORDERED: GLUCAPHAGE (13:50)
[2017-01-01] MEDS ORDERED: ONDANSETRON 4MG/2ML VIAL (J2405) IV ONE (14:45)
[2017-01-01 14:48] LABS: BASO % 0.3 % (0.0-1.0); EOS # 0.1 K/mm3 (0.0-0.50); EOS % 1.4 % (0.0-3.0); LARGE UNSTAINED CELL # 0.1 K/mm3 (0.0-0.4); LARGE UNSTAINED CELL % 0.9 % (0.0-4.0); LYMPH # 1.8 K/mm3 (1.5-4.5); LYMPH % 19.9 % (24.0-44.0); MEAN CORPUSCULAR HEMOGLOBIN 31.2 pg (27.0-33.0); MEAN CORPUSCULAR HGB CONC 34.6 g/dl (32.0-36.5); MONO # 0.4 K/mm3 (0.0-0.8); MONO % 4.2 % (0.0-5.0); NEUTROPHILS # 6.1 K/mm3 (1.8-7.7); NEUTROPHILS % 73.3 % (36.0-66.0); PLATELET COUNT, AUTOMATED 256 k/mm3 (150-450); RED CELL DISTRIBUTION WIDTH 13.5 % (11.5-14.5); WHITE BLOOD COUNT 8.4 K/mm3 (4.0-10.0)
[2017-01-01 14:55] LABS: ALBUMIN 4.1 GM/DL (3.2-5.2); ALBUMIN/GLOBULIN RATIO 1.21 (1.00-1.93); ALKALINE PHOSPHATASE 97 U/L (45-117); ALT/SGPT 24 U/L (12-78); ANION GAP 9 MEQ/L (8-16); AST/SGOT 21 U/L (15-37); BILIRUBIN,DIRECT 0.1 MG/DL (0.0-0.2); BILIRUBIN,TOTAL 0.6 MG/DL (0.2-1.0); BLOOD UREA NITROGEN 12 MG/DL (7-18); CALCIUM LEVEL 9.6 MG/DL (8.8-10.2); CARBON DIOXIDE LEVEL 27 MEQ/L (21-32); CHLORIDE LEVEL 107 MEQ/L (98-107); GLOMERULAR FILTRATION RATE > 60.0 (>45); GLUCOSE, FASTING 114 MG/DL (80-110); POTASSIUM SERUM 3.7 MEQ/L (3.5-5.1); SODIUM LEVEL 143 MEQ/L (136-145); TOTAL PROTEIN 7.5 GM/DL (6.4-8.2)
[2017-01-01] MEDS ORDERED: METHYLNALTREXONE BROMIDE 12 MG/0.6 ML VIAL (RELISTOR) SC ONE (15:15)
--- NOTE | 2017-01-01 17:24 | REP ---
Abdominal series: Three views: History: Constipation. Findings: Upright chest radiograph shows no evidence of infiltrate or free subdiaphragmatic air. Heart is not enlarged. The aorta somewhat tortuous. No change from comparison radiograph 05/28/2008. Supine and erect views of the abdomen demonstrate that the patient is status post L4-5 lumbar spine fusion. There are clips in the gallbladder fossa as well. The bowel gas pattern is unremarkable. No larger small bowel dilation is seen. No mass organomegaly is appreciated. Impression: Status post cholecystectomy and L4-5 lumbar spine fusion. Osteoarthritis of the hips, left greater than right. No acute abnormality. Signed by Luis Avery MD 01/02/2017 07:56 A
== END 2017-01-01 15:47 | disposition home or self-care (01) ==
LOC: M ED 13:28 → EDBD 13:28 → M ED 15:47
DX: K59.03 Drug induced constipation (principal); R10.9 Unspecified abdominal pain; R11.10 Vomiting, unspecified; I10 Essential (primary) hypertension; E78.5 Hyperlipidemia, unspecified; G89.29 Other chronic pain; M54.5 Low back pain; F41.9 Anxiety disorder, unspecified; F32.9 Major depressive disorder, single episode, unspecified; Z88.8 Allergy status to other drugs, medicaments and biological substances; Z79.82 Long term (current) use of aspirin; Z79.899 Other long term (current) drug therapy
CPT/HCPCS: 74022; 80048; 80076; 83690; 85025; 96374; 99283; J2405

== ENCOUNTER → 2017-02-05 | Outpatient (REF) | payer MEDICARE ==
[~2017-02-05] MED LIST changes: +GLUCAPHAGE; +LASI20TA PO; +ROPI0.25 PO; +VITA200038 PO
[2017-02-05 12:22] LABS: BASO % 0.4 % (0.0-1.0); EOS # 0.3 K/mm3 (0.0-0.50); EOS % 4.7 % (0.0-3.0); LARGE UNSTAINED CELL # 0.1 K/mm3 (0.0-0.4); LARGE UNSTAINED CELL % 1.7 % (0.0-4.0); LYMPH # 1.5 K/mm3 (1.5-4.5); LYMPH % 27.2 % (24.0-44.0); MEAN CORPUSCULAR HEMOGLOBIN 31.4 pg (27.0-33.0); MEAN CORPUSCULAR VOLUME 95.1 fl (80.0-96.0); MONO # 0.3 K/mm3 (0.0-0.8); MONO % 5.1 % (0.0-5.0); NEUTROPHILS # 3.4 K/mm3 (1.8-7.7); NEUTROPHILS % 60.9 % (36.0-66.0); PLATELET COUNT, AUTOMATED 279 k/mm3 (150-450); RED CELL DISTRIBUTION WIDTH 13.4 % (11.5-14.5); WHITE BLOOD COUNT 5.6 K/mm3 (4.0-10.0)
[2017-02-05 12:30] LABS: ALBUMIN 3.8 GM/DL (3.2-5.2); ALBUMIN/GLOBULIN RATIO 1.19 (1.00-1.93); ALKALINE PHOSPHATASE 120 U/L (45-117); ALT/SGPT 35 U/L (12-78); ANION GAP 7 MEQ/L (8-16); AST/SGOT 19 U/L (15-37); BILIRUBIN,TOTAL 0.6 MG/DL (0.2-1.0); BLOOD UREA NITROGEN 16 MG/DL (7-18); CARBON DIOXIDE LEVEL 30 MEQ/L (21-32); CHLORIDE LEVEL 106 MEQ/L (98-107); CREATININE FOR GFR 0.81 MG/DL (0.55-1.02); GLOMERULAR FILTRATION RATE > 60.0 (>45); GLUCOSE, FASTING 114 MG/DL (80-110); POTASSIUM SERUM 3.9 MEQ/L (3.5-5.1); SODIUM LEVEL 143 MEQ/L (136-145)
== END ==
LOC: M SFHCPLAZ 09:03
PROVIDERS: ATTEND Family Medicine
DX: I10 Essential (primary) hypertension (principal); E11.9 Type 2 diabetes mellitus without complications

== ENCOUNTER → 2017-02-08 | Outpatient (REF) | payer MEDICARE | LOC: M SFHCPLAZ 15:54 | PROVIDERS: ATTEND Family Medicine | DX: E11.9 Type 2 diabetes mellitus without complications (principal) ==

== ENCOUNTER → 2017-02-11 | Outpatient (CLI) | payer MEDICARE ==
--- NOTE | 2017-03-04 00:11 | ECWPNPC ---
PATIENT NAME: MAXI FELICIANO : 1945 GENDER: FEMALE VISIT DATE: 02/11/2017 DISCHARGE DATE: 02/11/17 1500 VISIT LOCKED DATE TIME: PHYSICIAN: ALEXIS QUINTERO PHYSICIAN PAGER NO: [phone] RESOURCE: ALEXIS QUINTERO REASON FOR APPOINTMENT 1. FOLLOWUP HISTORY OF PRESENT ILLNESS HISTORY OF PRESENT ILLNESS: HERE FOR F/U AND MANAGEMENT OF LEFT HIP AND LEG PAIN.RATING PAIN VAS 5/10.CURRENTLY USING GABAPENTIN 600MG TID AND PERCOCET 7.5MG/325 Q6H PRN FOR PAIN.FINDS CURRENT MEDICATION SOMEWHAT HELPFUL.TRIALED ON BOTOX WITH DR. MANUEL AND THIS DID NOT HELP.HISTORY OF STROKE 9 YEARS AGO AND HAD RESIDUAL LEFT ANKLE WEAKNESS AND NUMBNESS.DESCRIBES LEFT LOW BACK AND LEG PAIN SHARP AND THROBBING. PAIN THE PATIENT DESCRIBES THE PAIN... FALL RISK SCREENING: SCREENING :NO FALLS IN THE PAST YEAR CURRENT MEDICATIONS TAKING LASIX 20 MG TABLET 1 TABLET ORALLY ONCE A DAY TAKING EQL VITAMIN D-3 2000 UNITS TABLET 2 TABS ORALLY QD TAKING FOSAMAX 70 MG TABLET 1 TABLET ORALLY WEEKLY TAKING TUMS ULTRA 1000 1000 MG TABLET CHEWABLE 1 TAB ORALLY BID TAKING GLUCOPHAGE XR 500 MG TABLET EXTENDED RELEASE 24 HOUR 1 TABLET ORALLY AC DINNER TAKING ASPIRIN 81 MG TABLET CHEWABLE 1 TABLET ORALLY ONCE A DAY TAKING VITAMIN E 400 UNIT CAPSULE 1 TABLET ORALLY ONCE A DAY TAKING VITAMIN C 500 MG TABLET 1 TABLET ORALLY ONCE A DAY TAKING WHEELCHAIR FOLDING WITH SWING-AWAY FOOT RESTS MISCELLANEOUS DIRECTED LIGHTWEIGHT _M47.816; M16.9 TAKING ROPINIROLE HCL 0.25 MG TABLET DIRECTED ORALLY BEFORE BEDTIME TAKING PAXIL 20 MG TABLET 1 TABLET IN THE MORNING ORALLY ONCE A DAY TAKING GABAPENTIN 600 MG TABLET 1 TABLET ORALLY THREE TIMES A DAY TAKING METHOCARBAMOL 500 MG TABLET 1 TABLETS ORALLY Q8H PRN MDD3 TAKING MOVANTIK 12.5 MG TABLET 1 TABLET IN THE MORNING ORALLY ONCE A DAY TAKING SENNA 8.6 MG TABLET 2 TABLETS AT BEDTIME NEEDED ORALLY ONCE A DAY TAKING ATORVASTATIN CALCIUM 80 MG TABLET 1 TABLET ORALLY ONCE A DAY TAKING PERCOCET 7.5-325 MG TABLET 1 TABLET NEEDED ORALLY Q6H PRN MDD4 TAKING LABETALOL HCL 300 MG TABLET 1.5 TAB QAM AND 1 TAB Q PM ORALLY TWICE A DAY MEDICATION LIST REVIEWED AND RECONCILED WITH THE PATIENT PAST MEDICAL HISTORY 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 HYPERTENSION-MILD LAE 35 MM, MILD DIASTOLIC DYSFUNCTION, LVEF 65%BY 11/2007 TTE-KIDD HYPERLIPIDEMIA 2B T2DM NID HISTORY OF NICOTINE ADDICTION DEPRESSION/ANXIETY DISORDER 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 CT SHOWING MULTILEVEL DISEASE, MILD ANTERIOR LISTHESIS C3/C4, C4/C5 OBESITY OSTEOPENIA VITAMIN D DEFICIENCY L HIP ADVANCED HIP OA C JOINT SPACE OBLITERATION AND ACETABULAR REMODELING BY 12/2014 XRAY MULTI-LEVEL LUMBAR DJD C MINIMAL CANAL CC STENOSIS L3-5 C B L4 COMPRESSION IN NF AND DIFFUSE L5/S1 BULGE C B L5 COMPRESSION IN NF BY 07/2013 MRI S/P L4/5 OBLIQUE LATERAL INTERBODY FUSION 05/10/2014-CHELSEA Hester LATERAL THIGH LIPOMA, EXCISED 08/2009, 01/2012-LIYA Davenport ICA PROXIMAL 50% STENOSIS BY 11/2007 MRA L 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 CONSTITUTIONAL: ANY CHANGE IN YOUR MEDICAL CONDITION? NO . CHILLS NO . FEVER NO . INFECTION: DO YOU HAVE NEW INFECTIONS? NO . DO YOU HAVE HISTORY OF MRSA? NO . MUSCULOSKELETAL: ANY NEW PATTERNS OF PAIN OR NUMBNESS? NO . GASTROENTEROLOGY: ANY NEW CHANGE IN BOWEL CONTROL? NO . GENITOURINARY: ANY NEW CHANGE IN BLADDER CONTROL? NO . IS THERE A CHANCE YOU COULD BE ? NO . HEMATOLOGY/LYMPH: DO YOU TAKE ANY BLOOD THINNERS? (FOR EXAMPLE- COUMADIN, PLAVIX, AGGRENOX, PLATEL, PRADAXA, OR XARELTO) NO . WHEN WAS YOUR LAST DOSE? DATE: TIME: . NEUROLOGY: HAVE YOU FALLEN IN THE PAST 6 MONTHS? NO . ANY NEW EXTREMITY NUMBNESS OR WEAKNESS? NO . CARDIOLOGY: DO YOU HAVE A PACEMAKER OR DEFIBRILLATOR? NO . RESPIRATORY: HAVE YOU BEEN SICK IN THE PAST WEEK? NO . FEVER NO . FLU LIKE SYMPTOMS? NO . COUGH NO . INTEGUMENTARY: DO YOU HAVE ANY RASHES OR OPEN SORES? NO . ALLERGIC/IMMUNO: ARE YOU ALLERGIC TO SHELLFISH OR IV DYE? NO . ANY NEW ALLERGIES? NO . PSYCHIATRIC: DO YOU HAVE THOUGHTS OF HURTING YOURSELF OR SOMEONE ELSE? NO . ARE YOU ABUSED, NEGLECTED, OR IN AN UNSAFE ENVIRONMENT? NO . ENDOCRINOLOGY: ARE YOU DIABETIC? YES . OTHER: DO YOU NEED ANY PRESCRIPTIONS? NO . IF YES, PLEASE LIST: ____ . ANY NEW PROBLEMS WITH YOUR MEDICATIONS? NO . WHEN DID YOU LAST EAT? ____ . WHEN DID YOU LAST DRINK? ____ . WHAT DID YOU LAST DRINK? ____ . NAME OF PERSON DRIVING YOU HOME? ____ . DO YOU HAVE ANY OTHER QUESTIONS OR CONCERNS NO . VITAL SIGNS WT 143 LBS, HT 62 IN, BMI 26.15 INDEX, BP 153/95 MM HG, HR 73 /MIN, RR 18 /MIN, TEMP 98.5 F, OXYGEN SAT % 93%, NA INITIALS SC 13:53. EXAMINATION GENERAL EXAMINATION: LUNGS:LUNG SOUNDS ARE CLEAR. HEART:HEART RATE REGULAR. MUSCULOSKELETAL:*, MUSCLE STRENGTH TESTING 5/5 RIGHT.3/5 LEFT. PAIN WITH PALPATION LEFT HIP.PARATHESIAS TO LIGHT TOUCH LEFT LEG. ASSESSMENTS CHRONIC PRESCRIPTION OPIATE USE - Z79.891 (PRIMARY) LEG PARESTHESIA - R20.2 HIP PAIN, LEFT - M25.552 TREATMENT CHRONIC PRESCRIPTION OPIATE USE REFILL GABAPENTIN TABLET, 600 MG, 1 TABLET, ORALLY, THREE TIMES A DAY, 30 DAY(S), 90 TABLET, REFILLS 2 CONTINUE MOVANTIK TABLET, 12.5 MG, 1 TABLET IN THE MORNING, ORALLY, ONCE A DAY REFILL PERCOCET TABLET, 7.5-325 MG, 1 TABLET NEEDED, ORALLY, Q6H PRN MDD4, 30 DAY(S), 120, REFILLS 0 START HYSINGLA ER TABLET ER 24 HOUR ABUSE-DETERRENT, 30 MG, 1 TABLET, ORALLY, ONCE A DAY, 30 DAY(S), 30 TABLET, REFILLS 0 NOTES: ISTOP REGISTRY [id number] AND DEMNOSTRATES COMPLLIANCE. BRINGS IN MEDICATIONS WHICH IS APPROPRIATE FOR WHAT WAS DISPENSED. RECENT URINE TOXICOLOGY REVIEWED. NO UNAUTHORIZED MEDICATIONS. NO ILLICIT SUBSTANCES AND PRESCRIBED MEDICATIONS WERE PRESENT. , RISKS AND BENEFITS OF NARCOTIC/OPIOD MEDICATIONS WERE REVIEWED WITH PATIENT - THIS INCLUDES BUT IS NOT LIMITED TO RISK OF DEPENDANCE/DEVELOPMENT OF ADDICTION, MOOD DISTURBANCE AND DEPRESSION, OSTEOPOROSIS, HORMONAL AND LABIDAL CHANGES, RESPIRATORY DEPRESSION AND . PATIENT IS ADVISED NOT TO DRIVE WHILE ON THESE MEDICATIONS. PROCEDURE CODES FA211 ESTABILISHED PATIENT [facility] CHARGE G8730 PAIN ASSESS POS TOOL F/U PLAN DOC G8427 DOC MEDS VERIFIED W/PT OR RE DISPOSITION & COMMUNICATION FOLLOW UP 4 WEEKS ELECTRONICALLY SIGNED BY BRIANDA LOMELI ON 03/03/2017 AT 09:08 PM EDT DISCLAIMER : THIS IS A VISIT SUMMARY EXTRACTED FROM THE [employer] CHART. IT IS NOT A COPY OF THE [employer] PROGRESS NOTE. VIBHA
== END ==
LOC: M PAIN 14:00
PROVIDERS: ATTEND Nurse Practitioner Family
DX: G89.29 Other chronic pain (principal); M25.552 Pain in left hip; R20.2 Paresthesia of skin; I10 Essential (primary) hypertension; E78.5 Hyperlipidemia, unspecified; E11.9 Type 2 diabetes mellitus without complications; F32.9 Major depressive disorder, single episode, unspecified; F41.9 Anxiety disorder, unspecified; E55.9 Vitamin D deficiency, unspecified; M16.12 Unilateral primary osteoarthritis, left hip; Z88.8 Allergy status to other drugs, medicaments and biological substances; Z79.84 Long term (current) use of oral hypoglycemic drugs; Z79.82 Long term (current) use of aspirin; Z79.899 Other long term (current) drug therapy; Z87.891 Personal history of nicotine dependence

== ENCOUNTER → 2017-03-11 | Outpatient (CLI) | payer MEDICARE ==
--- NOTE | 2017-03-12 01:17 | ECWPNPC ---
PATIENT NAME: MAXI FELICIANO : 1945 GENDER: FEMALE VISIT DATE: 03/11/2017 DISCHARGE DATE: 03/11/17 1429 VISIT LOCKED DATE TIME: PHYSICIAN: ALEXIS QUINTERO PHYSICIAN PAGER NO: [phone] RESOURCE: ALEXIS QUINTERO REASON FOR APPOINTMENT 1. BACK/LEGS HISTORY OF PRESENT ILLNESS HISTORY OF PRESENT ILLNESS: HERE FOR F/U AND MEDICINE MANAGEMENT OF PERSISTENT LOW BACK PAIN THAT TRAVELS DOWN LEFT HIP AND LEG.RATING PAIN VAS 7/10.STATED ON OXYCODONE 15MG BID STARTED AT LAST VISIT.NUCYNTA WOULD BE TOO EXPENSIVE MONTHLY.HAS BEEN USING OXYCODONE 15MG ONE AT HS AND REPORTING IMPROVED SLEEP.THIS WAS STARTED ONE MONTH AGO.USING PERCOCET 7.5/325 UP TO 4 TABLETS NEEDED DURING DAY AND GABAPENTIN 600MG TID.DISCUSSED TRYING 1/2 TAB OXYCODONE IN AM AND 2 PM AND FULL OXYCODONE 15MG AT HS.ENCOURAGED TO USE LESS PERCOCET7.5/325.DENIES SIDE EFFECTS. PAIN THE PATIENT DESCRIBES THE PAIN... FALL RISK SCREENING: SCREENING :NO FALLS IN THE PAST YEAR CURRENT MEDICATIONS TAKING LASIX 20 MG TABLET 1 TABLET ORALLY ONCE A DAY TAKING EQL VITAMIN D-3 2000 UNITS TABLET 2 TABS ORALLY QD TAKING FOSAMAX 70 MG TABLET 1 TABLET ORALLY WEEKLY TAKING TUMS ULTRA 1000 1000 MG TABLET CHEWABLE 1 TAB ORALLY BID TAKING GLUCOPHAGE XR 500 MG TABLET EXTENDED RELEASE 24 HOUR 1 TABLET ORALLY AC DINNER TAKING ASPIRIN 81 MG TABLET CHEWABLE 1 TABLET ORALLY ONCE A DAY TAKING VITAMIN E 400 UNIT CAPSULE 1 TABLET ORALLY ONCE A DAY TAKING VITAMIN C 500 MG TABLET 1 TABLET ORALLY ONCE A DAY TAKING WHEELCHAIR FOLDING WITH SWING-AWAY FOOT RESTS MISCELLANEOUS DIRECTED LIGHTWEIGHT _M47.816; M16.9 TAKING ROPINIROLE HCL 0.25 MG TABLET DIRECTED ORALLY BEFORE BEDTIME TAKING METHOCARBAMOL 500 MG TABLET 1 TABLETS ORALLY Q8H PRN MDD3 TAKING SENNA 8.6 MG TABLET 2 TABLETS AT BEDTIME NEEDED ORALLY ONCE A DAY TAKING ATORVASTATIN CALCIUM 80 MG TABLET 1 TABLET ORALLY ONCE A DAY TAKING LABETALOL HCL 300 MG TABLET 1.5 TAB QAM AND 1 TAB Q PM ORALLY TWICE A DAY TAKING GABAPENTIN 600 MG TABLET 1 TABLET ORALLY THREE TIMES A DAY TAKING MOVANTIK 12.5 MG TABLET 1 TABLET IN THE MORNING ORALLY ONCE A DAY TAKING PERCOCET 7.5-325 MG TABLET 1 TABLET NEEDED ORALLY Q6H PRN MDD4 TAKING PAXIL 20 MG TABLET 1 TABLET IN THE MORNING ORALLY ONCE A DAY TAKING OXYCODONE HCL 15 MG TABLET 1 TABLET NEEDED ORALLY BID,MDD2 NOT-TAKING HYSINGLA ER 30 MG TABLET ER 24 HOUR ABUSE-DETERRENT 1 TABLET ORALLY ONCE A DAY PAST MEDICAL HISTORY 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 HYPERTENSION-MILD LAE 35 MM, MILD DIASTOLIC DYSFUNCTION, LVEF 65%BY 11/2007 TTE-KIDD HYPERLIPIDEMIA 2B T2DM NID HISTORY OF NICOTINE ADDICTION DEPRESSION/ANXIETY DISORDER 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 CT SHOWING MULTILEVEL DISEASE, MILD ANTERIOR LISTHESIS C3/C4, C4/C5 OBESITY OSTEOPENIA VITAMIN D DEFICIENCY L HIP ADVANCED HIP OA C JOINT SPACE OBLITERATION AND ACETABULAR REMODELING BY 12/2014 XRAY MULTI-LEVEL LUMBAR DJD C MINIMAL CANAL CC STENOSIS L3-5 C B L4 COMPRESSION IN NF AND DIFFUSE L5/S1 BULGE C B L5 COMPRESSION IN NF BY 07/2013 MRI S/P L4/5 OBLIQUE LATERAL INTERBODY FUSION 05/10/2014-CHELSAE Hester LATERAL THIGH LIPOMA, EXCISED 08/2009, 01/2012-LIYA Davenport ICA PROXIMAL 50% STENOSIS BY 11/2007 MRA L KNEE ADVANCED TRICOMPARTMENTAL OA BY 12/2014 XRAY MID LOWER BACK NEUROFIBROMA EXCISED 10/2015-LIYA ALLERGIES LISINOPRIL: SWELLING: ALLERGY SURGICAL HISTORY L ULNAR STYLOID FIXATION S/P FX FROM MECHANICAL FALL-DANTE WRAY DECEMBER 2009 TAHBSO NONCANCEROUS REASONS 1991 CHOLECYSTECTOMY 1983 SOCIAL HISTORY GENERAL: TOBACCO USE ARE YOU A:NONSMOKER ALCOHOL SCREENING DID YOU HAVE A DRINK CONTAINING ALCOHOL IN THE PAST YEAR?NO POINTS0 INTERPRETATIONNEGATIVE SEXUAL HX HAD SEX IN THE LAST 12 MONTHS (VAGINAL, ORAL, OR ANAL)?NO HAVE YOU EVER HAD AN STD?NO MARITAL STATUS: . SHINTO [id number] [employer] LANGUAGE LANGUAGES SPOKEN:[place] LEARNING BARRIERS / SPECIAL NEEDS CHANGE FROM LAST VISIT?NO BARRIERS TO LEARNING?NO HEARING IMPAIRED?NO VISION IMPAIRED?YES :CORRECTIVE LENSES COGNITIVELY IMPAIRED?NO READINESS TO LEARN?YES LEARNING PREFERENCES?NO LEARNING CAPABILITIES PRESENT?YES EMOTIONAL BARRIERS?NO SPECIAL DEVICES?YES :WHEELCHAIR PAST DUE ACCOUNTS CLERK NEEDED?NO NEW PATIENT PAIN DIARY TODAY'S VISIT NOTES, FROM 0-10, WHAT LEVEL IS YOUR PAIN TODAY? 0. PAIN CLINIC PFS, CLERGY, PUBLIC HEALTH REFERRALS PFS REFERRAL NEEDED? NO, CLERGY REFERRAL NEEDED? NO, PUBLIC HEALTH REFERRAL NEEDED? NO, WAS THE PROVIDER NOTIFIED OF ANY PERTINENT INFO? NO, PFS REFERRAL NEEDED? NO, CLERGY REFERRAL NEEDED? NO, PUBLIC HEALTH REFERRAL NEEDED? NO, WAS THE PROVIDER NOTIFIED OF ANY PERTINENT INFO? NO. HOSPITALIZATION/MAJOR DIAGNOSTIC PROCEDURE ABOVE L4/5-OLIF-CHIN THEN PMR 05/10- REVIEW OF SYSTEMS REVIEWED BY: PROVIDER: ALEXIS LAMAR . CONSTITUTIONAL: ANY CHANGE IN YOUR MEDICAL CONDITION? NO . CHILLS NO . FEVER NO . INFECTION: DO YOU HAVE NEW INFECTIONS? NO . DO YOU HAVE HISTORY OF MRSA? NO . MUSCULOSKELETAL: ANY NEW PATTERNS OF PAIN OR NUMBNESS? NO . GASTROENTEROLOGY: ANY NEW CHANGE IN BOWEL CONTROL? NO . GENITOURINARY: ANY NEW CHANGE IN BLADDER CONTROL? NO . IS THERE A CHANCE YOU COULD BE ? NO . HEMATOLOGY/LYMPH: DO YOU TAKE ANY BLOOD THINNERS? (FOR EXAMPLE- COUMADIN, PLAVIX, AGGRENOX, PLATEL, PRADAXA, OR XARELTO) NO . WHEN WAS YOUR LAST DOSE? DATE: TIME: . NEUROLOGY: HAVE YOU FALLEN IN THE PAST 6 MONTHS? NO . ANY NEW EXTREMITY NUMBNESS OR WEAKNESS? NO . CARDIOLOGY: DO YOU HAVE A PACEMAKER OR DEFIBRILLATOR? NO . RESPIRATORY: HAVE YOU BEEN SICK IN THE PAST WEEK? NO . FEVER NO . FLU LIKE SYMPTOMS? NO . COUGH NO . INTEGUMENTARY: DO YOU HAVE ANY RASHES OR OPEN SORES? NO . ALLERGIC/IMMUNO: ARE YOU ALLERGIC TO SHELLFISH OR IV DYE? NO . ANY NEW ALLERGIES? NO . PSYCHIATRIC: DO YOU HAVE THOUGHTS OF HURTING YOURSELF OR SOMEONE ELSE? NO . ARE YOU ABUSED, NEGLECTED, OR IN AN UNSAFE ENVIRONMENT? NO . ENDOCRINOLOGY: ARE YOU DIABETIC? YES . OTHER: DO YOU NEED ANY PRESCRIPTIONS? NO . IF YES, PLEASE LIST: ____ . ANY NEW PROBLEMS WITH YOUR MEDICATIONS? NO . WHEN DID YOU LAST EAT? ____ . WHEN DID YOU LAST DRINK? ____ . WHAT DID YOU LAST DRINK? ____ . NAME OF PERSON DRIVING YOU HOME? ____ . DO YOU HAVE ANY OTHER QUESTIONS OR CONCERNS NO . VITAL SIGNS WT 130 LBS, HT 62 IN, BMI 23.77 INDEX, BP 132/81 MM HG, HR 71 /MIN, RR 18 /MIN, TEMP 97.3 F, OXYGEN SAT % 94%, NA INITIALS AW 1333, REVIEWED BY: NL. EXAMINATION GENERAL EXAMINATION: LUNGS:LUNG SOUNDS ARE CLEAR. HEART:HEART RATE REGULAR. MUSCULOSKELETAL:*, MUSCLE STRENGTH TESTING 5/5 RIGHT.3/5 LEFT. PAIN WITH PALPATION LEFT HIP.PARATHESIAS TO LIGHT TOUCH LEFT LEG. ASSESSMENTS CHRONIC PRESCRIPTION OPIATE USE - Z79.891 (PRIMARY) LEG PARESTHESIA - R20.2 HIP PAIN, LEFT - M25.552 TREATMENT CHRONIC PRESCRIPTION OPIATE USE CONTINUE GABAPENTIN TABLET, 600 MG, 1 TABLET, ORALLY, THREE TIMES A DAY REFILL PERCOCET TABLET, 7.5-325 MG, 1 TABLET NEEDED, ORALLY, Q6H PRN MDD4, 30 DAY(S), 120, REFILLS 0 REFILL OXYCODONE HCL TABLET, 15 MG, 1 TABLET NEEDED, ORALLY, BID,MDD2, 30 DAYS, 60, REFILLS 0 START COLACE CAPSULE, 100 MG, 1 CAPSULE NEEDED, ORALLY, BID, 30 DAY(S), 60 CAPSULE, REFILLS 2 NOTES: ISTOP REGISTRY REVIEWED [id number] RISKS AND BENEFITS OF NARCOTIC/OPIOD MEDICATIONS WERE REVIEWED WITH PATIENT - THIS INCLUDES BUT IS NOT LIMITED TO RISK OF DEPENDANCE/DEVELOPMENT OF ADDICTION, MOOD DISTURBANCE AND DEPRESSION, OSTEOPOROSIS, HORMONAL AND LABIDAL CHANGES, RESPIRATORY DEPRESSION AND . PATIENT IS ADVISED NOT TO DRIVE WHILE ON THESE MEDICATIONS, AND DEMNOSTRATES COMPLLIANCE. BRINGS IN MEDICATIONS WHICH IS APPROPRIATE FOR WHAT WAS DISPENSED. RECENT URINE TOXICOLOGY REVIEWED. NO UNAUTHORIZED MEDICATIONS. NO ILLICIT SUBSTANCES AND PRESCRIBED MEDICATIONS WERE PRESENT. PROCEDURE CODES FA211 ESTABILISHED PATIENT [facility] FACILITY CHARGE G8730 PAIN ASSESS POS TOOL F/U PLAN DOC G8427 DOC MEDS VERIFIED W/PT OR RE DISPOSITION & COMMUNICATION FOLLOW UP 6 WEEKS ELECTRONICALLY SIGNED BY BRIANDA LOMELI ON 03/11/2017 AT 02:30 PM EDT DISCLAIMER : THIS IS A VISIT SUMMARY EXTRACTED FROM THE [employer] CHART. IT IS NOT A COPY OF THE [employer] PROGRESS NOTE. VIBHA
== END ==
LOC: M PAIN 13:30
PROVIDERS: ATTEND Nurse Practitioner Family
DX: G89.29 Other chronic pain (principal); R20.2 Paresthesia of skin; M25.552 Pain in left hip; I10 Essential (primary) hypertension; E11.9 Type 2 diabetes mellitus without complications; M16.9 Osteoarthritis of hip, unspecified; E78.5 Hyperlipidemia, unspecified; I77.9 Disorder of arteries and arterioles, unspecified; M85.80 Other specified disorders of bone density and structure, unspecified site; E55.9 Vitamin D deficiency, unspecified; F32.9 Major depressive disorder, single episode, unspecified; F41.9 Anxiety disorder, unspecified; Z88.8 Allergy status to other drugs, medicaments and biological substances; Z79.84 Long term (current) use of oral hypoglycemic drugs; Z79.82 Long term (current) use of aspirin; Z79.899 Other long term (current) drug therapy

== ENCOUNTER → 2017-06-18 | Outpatient (CLI) | payer MEDICARE | END | disposition home or self-care (01) | LOC: M PAIN 13:15 | DX: G89.29 Other chronic pain (principal); M47.816 Spondylosis without myelopathy or radiculopathy, lumbar region; I10 Essential (primary) hypertension; E11.9 Type 2 diabetes mellitus without complications; F33.9 Major depressive disorder, recurrent, unspecified; F41.9 Anxiety disorder, unspecified; E55.9 Vitamin D deficiency, unspecified; E66.9 Obesity, unspecified; M85.9 Disorder of bone density and structure, unspecified; E78.5 Hyperlipidemia, unspecified; Z79.899 Other long term (current) drug therapy; Z79.82 Long term (current) use of aspirin; Z88.8 Allergy status to other drugs, medicaments and biological substances | CPT/HCPCS: G0463 ==

== ENCOUNTER 2017-06-25 15:12 | Inpatient (IN) | payer MEDICARE ==
[2017-06-25] MEDS: MORPHINE 4 MG/ML 1ML VIAL (J2270) IV ×4 (15:34→20:20)
[2017-06-25 16:50] LABS: HEMATOCRIT 40.3 % (36.0-47.0); HEMOGLOBIN 13.5 g/dl (12.0-16.0); MEAN CORPUSCULAR HEMOGLOBIN 30.1 pg (27.0-33.0); MEAN CORPUSCULAR HGB CONC 33.5 g/dl (32.0-36.5); MEAN CORPUSCULAR VOLUME 89.8 fl (80.0-96.0); PLATELET COUNT, AUTOMATED 214 10^3/uL (150-450); RED BLOOD COUNT 4.49 10^6/uL (4.00-5.40); RED CELL DISTRIBUTION WIDTH 12.9 % (11.5-14.5); WHITE BLOOD COUNT 13.1 10^3/uL (4.0-10.0)
[2017-06-25 17:22] LABS: ANION GAP 7 MEQ/L (8-16); BLOOD UREA NITROGEN 19 MG/DL (7-18); CALCIUM LEVEL 8.8 MG/DL (8.8-10.2); CARBON DIOXIDE LEVEL 25 MEQ/L (21-32); CHLORIDE LEVEL 109 MEQ/L (98-107); CREATININE FOR GFR 0.72 MG/DL (0.55-1.30); GLOMERULAR FILTRATION RATE > 60.0 (>39); GLUCOSE, FASTING 109 MG/DL (70-100); POTASSIUM SERUM 4.3 MEQ/L (3.5-5.1); SODIUM LEVEL 141 MEQ/L (136-145)
[2017-06-25] MEDS ORDERED: GLUCAGON FOR INJ 1 MG VIAL (J1610) SC (18:45)
[2017-06-25] MEDS ORDERED: ONDANSETRON 4MG/2ML VIAL (J2405) IV (18:45)
[2017-06-25] MEDS ORDERED: DEXTROSE 50% 50 ML SYRINGE IV (18:45)
[2017-06-25] MEDS ORDERED: GLUCOSE 4 GM CHEW TABLET PO (18:45)
[2017-06-25] MEDS ORDERED: MORPHINE 2 MG/ML 1ML SYRINGE (J2270) IV (18:45)
[2017-06-25 20:56] LABS: BEDSIDE GLUCOSE 132 MG/DL (83-110)
[2017-06-25] MEDS: HumaLOG INSULIN (NovoLOG) PER UNIT SC (21:00)
[2017-06-25] MEDS: LABETALOL 100 MG TAB PO (21:54)
[2017-06-25] MEDS: HEPARIN SOD (PORCINE) 5000 UNITS/ML VIAL SC (21:54)
[2017-06-25] MEDS: GABAPENTIN 300 MG CAP PO (21:55)
[2017-06-25] MEDS: metFORMIN XR 500MG TAB *GLUCOPHAGE XR PO (21:56)
[2017-06-25] MEDS: oxyCODONE 5MG TAB PO (21:56)
[2017-06-26] MEDS: MORPHINE 4 MG/ML 1ML VIAL (J2270) IV (00:45)
[2017-06-26] MEDS: oxyCODONE 5MG TAB PO (00:48)
[2017-06-26] MEDS: HEPARIN SOD (PORCINE) 5000 UNITS/ML VIAL SC ×3 (06:11→21:05)
[2017-06-26 07:18] LABS: HEMATOCRIT 37.3 % (36.0-47.0); HEMOGLOBIN 12.1 g/dl (12.0-16.0); MEAN CORPUSCULAR HEMOGLOBIN 29.8 pg (27.0-33.0); MEAN CORPUSCULAR HGB CONC 32.4 g/dl (32.0-36.5); MEAN CORPUSCULAR VOLUME 91.9 fl (80.0-96.0); PLATELET COUNT, AUTOMATED 228 10^3/uL (150-450); RED BLOOD COUNT 4.06 10^6/uL (4.00-5.40); RED CELL DISTRIBUTION WIDTH 13.4 % (11.5-14.5); WHITE BLOOD COUNT 10.4 10^3/uL (4.0-10.0)
[2017-06-26 07:43] LABS: ANION GAP 9 MEQ/L (8-16); BLOOD UREA NITROGEN 30 MG/DL (7-18); CALCIUM LEVEL 8.7 MG/DL (8.8-10.2); CARBON DIOXIDE LEVEL 26 MEQ/L (21-32); CHLORIDE LEVEL 107 MEQ/L (98-107); CREATININE FOR GFR 1.93 MG/DL (0.55-1.30); GLOMERULAR FILTRATION RATE 27.3 (>39); GLUCOSE, FASTING 126 MG/DL (70-100); MAGNESIUM LEVEL 2.2 MG/DL (1.8-2.4); SODIUM LEVEL 142 MEQ/L (136-145)
[2017-06-26] MEDS: ATORVASTATIN 20 MG TAB PO (08:51)
[2017-06-26] MEDS: PARoxetine 20 MG TAB PO (08:51)
[2017-06-26] MEDS: PANTOPRAZOLE 40MG TAB (PROTONIX) PO (08:51)
[2017-06-26] MEDS: ASPIRIN 81 MG ENTERIC TAB PO (08:51)
[2017-06-26] MEDS: metFORMIN XR 500MG TAB *GLUCOPHAGE XR PO ×2 (08:52→21:05)
[2017-06-26] MEDS: HumaLOG INSULIN (NovoLOG) PER UNIT SC ×4 (08:52→21:00)
[2017-06-26] MEDS: GABAPENTIN 300 MG CAP PO ×3 (08:52→21:05)
[2017-06-26] MEDS: LABETALOL 100 MG TAB PO (09:00)
[2017-06-26] MEDS: NS 1,000 ML IV ×2 (09:37→21:04)
[2017-06-26] MEDS: PERCOCET 5MG/325MG TAB PO ×3 (09:37→19:11)
[2017-06-26 12:18] LABS: BEDSIDE GLUCOSE 129 MG/DL (83-110)
[2017-06-26 16:56] LABS: BEDSIDE GLUCOSE 127 MG/DL (83-110)
[2017-06-26 20:15] LABS: BEDSIDE GLUCOSE 192 MG/DL (83-110)
[2017-06-26] MEDS: ACETAMINOPHEN TAB 650MG DOSE (2X325MG) PO (22:57)
[2017-06-27] MEDS: PERCOCET 5MG/325MG TAB PO ×5 (01:20→23:16)
[2017-06-27] MEDS: HEPARIN SOD (PORCINE) 5000 UNITS/ML VIAL SC ×3 (05:48→20:51)
[2017-06-27 06:08] LABS: HEMATOCRIT 35.4 % (36.0-47.0); HEMOGLOBIN 11.7 g/dl (12.0-16.0); MEAN CORPUSCULAR HEMOGLOBIN 29.7 pg (27.0-33.0); MEAN CORPUSCULAR HGB CONC 33.1 g/dl (32.0-36.5); MEAN CORPUSCULAR VOLUME 89.8 fl (80.0-96.0); PLATELET COUNT, AUTOMATED 181 10^3/uL (150-450); RED BLOOD COUNT 3.94 10^6/uL (4.00-5.40); RED CELL DISTRIBUTION WIDTH 13.2 % (11.5-14.5); WHITE BLOOD COUNT 10.5 10^3/uL (4.0-10.0)
[2017-06-27 06:28] LABS: ANION GAP 10 MEQ/L (8-16); BLOOD UREA NITROGEN 17 MG/DL (7-18); CALCIUM LEVEL 8.3 MG/DL (8.8-10.2); CARBON DIOXIDE LEVEL 25 MEQ/L (21-32); CHLORIDE LEVEL 108 MEQ/L (98-107); CREATININE FOR GFR 0.72 MG/DL (0.55-1.30); GLUCOSE, FASTING 149 MG/DL (70-100); POTASSIUM SERUM 3.8 MEQ/L (3.5-5.1); SODIUM LEVEL 143 MEQ/L (136-145)
[2017-06-27 06:30] LABS: GLOMERULAR FILTRATION RATE > 60.0 (>39)
[2017-06-27] MEDS: oxyCODONE 5MG TAB PO ×2 (07:59→22:16)
[2017-06-27] MEDS: PANTOPRAZOLE 40MG TAB (PROTONIX) PO (08:09)
[2017-06-27] MEDS: ASPIRIN 81 MG ENTERIC TAB PO (08:10)
[2017-06-27] MEDS: metFORMIN XR 500MG TAB *GLUCOPHAGE XR PO ×2 (08:10→20:50)
[2017-06-27] MEDS: GABAPENTIN 300 MG CAP PO ×3 (08:10→20:50)
[2017-06-27] MEDS: ATORVASTATIN 20 MG TAB PO (08:10)
[2017-06-27] MEDS: PARoxetine 20 MG TAB PO (08:10)
[2017-06-27] MEDS: HumaLOG INSULIN (NovoLOG) PER UNIT SC (08:11)
[2017-06-27] MEDS: PREVNAR 13 VACCINE SYRINGE (CPT CODE:90670) IM (08:13)
[2017-06-27] MEDS ORDERED: MOM 30ML SUSPENSION UDC PO (09:30)
[2017-06-27 12:43] LABS: BEDSIDE GLUCOSE 138 MG/DL (83-110)
[2017-06-27] MEDS: ACETAMINOPHEN TAB 650MG DOSE (2X325MG) PO ×2 (14:00→18:41)
[2017-06-27 17:12] LABS: BEDSIDE GLUCOSE 135 MG/DL (83-110)
[2017-06-27 20:23] LABS: BEDSIDE GLUCOSE 147 MG/DL (83-110)
[2017-06-27] MEDS: DOCUSATE SODIUM 100 MG CAP PO (20:50)
[2017-06-27] MEDS: LABETALOL 200 MG TAB PO (20:50)
[2017-06-28 02:35] LABS: APPEARANCE, URINE CLEAR (CLEAR); BACTERIA, URINE AUTO NEGATIVE (NEGATIVE); BILIRUBIN, URINE AUTO NEGATIVE (NEGATIVE); BLOOD, URINE BLOOD NEGATIVE (NEGATIVE); COLOR, URINE YELLOW (YELLOW); GLUCOSE, URINE (UA) AUTO NEGATIVE (NEGATIVE); KETONE, URINE AUTO TRACE mg/dL (NEGATIVE); LEUKOCYTE ESTERASE, URINE AUTO NEGATIVE (NEGATIVE); MUCUS, URINE SMALL (NEGATIVE); NITRITE, URINE AUTO NEGATIVE (NEGATIVE); PROTEIN, URINE AUTO 2+ mg/dL (NEGATIVE); RBC, URINE AUTO 3 /HPF (0-3); SPECIFIC GRAVITY URINE AUTO 1.019 (1.002-1.035); SQUAMOUS EPITHELIAL CELL UR AU 0 /HPF (0-6); WBC, URINE AUTO 4 /HPF (0-3)
[2017-06-28] MEDS: PERCOCET 5MG/325MG TAB PO ×3 (03:28→18:10)
[2017-06-28] MEDS: HEPARIN SOD (PORCINE) 5000 UNITS/ML VIAL SC ×3 (06:57→21:11)
[2017-06-28 07:06] LABS: HEMATOCRIT 33.3 % (36.0-47.0); HEMOGLOBIN 11.3 g/dl (12.0-16.0); MEAN CORPUSCULAR HEMOGLOBIN 30.1 pg (27.0-33.0); MEAN CORPUSCULAR HGB CONC 33.9 g/dl (32.0-36.5); MEAN CORPUSCULAR VOLUME 88.6 fl (80.0-96.0); PLATELET COUNT, AUTOMATED 171 10^3/uL (150-450); RED BLOOD COUNT 3.76 10^6/uL (4.00-5.40); RED CELL DISTRIBUTION WIDTH 12.8 % (11.5-14.5); WHITE BLOOD COUNT 10.7 10^3/uL (4.0-10.0)
[2017-06-28 07:28] LABS: ANION GAP 7 MEQ/L (8-16); BLOOD UREA NITROGEN 14 MG/DL (7-18); CALCIUM LEVEL 8.6 MG/DL (8.8-10.2); CARBON DIOXIDE LEVEL 27 MEQ/L (21-32); CHLORIDE LEVEL 106 MEQ/L (98-107); CREATININE FOR GFR 0.63 MG/DL (0.55-1.30); GLOMERULAR FILTRATION RATE > 60.0 (>39); GLUCOSE, FASTING 129 MG/DL (70-100); MAGNESIUM LEVEL 1.8 MG/DL (1.8-2.4); POTASSIUM SERUM 3.4 MEQ/L (3.5-5.1); SODIUM LEVEL 140 MEQ/L (136-145)
[2017-06-28] MEDS: MIRALAX *UNIT DOSE* 17GM PACKET PO (09:19)
[2017-06-28] MEDS: ATORVASTATIN 20 MG TAB PO (09:19)
[2017-06-28] MEDS: DOCUSATE SODIUM 100 MG CAP PO ×2 (09:19→21:10)
[2017-06-28] MEDS: PARoxetine 20 MG TAB PO (09:19)
[2017-06-28] MEDS: GABAPENTIN 300 MG CAP PO ×3 (09:20→21:10)
[2017-06-28] MEDS: POTASSIUM CHLORIDE 10 MEQ SR TABLET PO (09:20)
[2017-06-28] MEDS: ASPIRIN 81 MG ENTERIC TAB PO (09:20)
[2017-06-28] MEDS: PANTOPRAZOLE 40MG TAB (PROTONIX) PO (09:20)
[2017-06-28] MEDS: LABETALOL 200 MG TAB PO ×2 (09:21→21:13)
[2017-06-28] MEDS: metFORMIN XR 500MG TAB *GLUCOPHAGE XR PO ×2 (09:21→21:10)
[2017-06-28] MEDS: oxyCODONE 5MG TAB PO ×2 (09:22→21:14)
[2017-06-28 11:46] LABS: BEDSIDE GLUCOSE 158 MG/DL (83-110)
[2017-06-28 17:28] LABS: BEDSIDE GLUCOSE 136 MG/DL (83-110)
[2017-06-28 21:25] LABS: BEDSIDE GLUCOSE 110 MG/DL (83-110)
[2017-06-29] MEDS: PERCOCET 5MG/325MG TAB PO ×4 (02:26→23:59)
[2017-06-29] MEDS: oxyCODONE 5MG TAB PO ×2 (05:10→17:33)
[2017-06-29] MEDS: HEPARIN SOD (PORCINE) 5000 UNITS/ML VIAL SC ×3 (05:10→20:14)
[2017-06-29 06:16] LABS: BEDSIDE GLUCOSE 129 MG/DL (83-110)
[2017-06-29 06:31] LABS: HEMATOCRIT 32.6 % (36.0-47.0); HEMOGLOBIN 11.1 g/dl (12.0-16.0); MEAN CORPUSCULAR VOLUME 88.1 fl (80.0-96.0); PLATELET COUNT, AUTOMATED 194 10^3/uL (150-450); WHITE BLOOD COUNT 9.9 10^3/uL (4.0-10.0)
[2017-06-29 07:04] LABS: ANION GAP 11 MEQ/L (8-16); BLOOD UREA NITROGEN 15 MG/DL (7-18); CALCIUM LEVEL 8.7 MG/DL (8.8-10.2); CARBON DIOXIDE LEVEL 25 MEQ/L (21-32); CHLORIDE LEVEL 103 MEQ/L (98-107); CREATININE FOR GFR 0.57 MG/DL (0.55-1.30); GLOMERULAR FILTRATION RATE > 60.0 (>39); GLUCOSE, FASTING 119 MG/DL (70-100); MAGNESIUM LEVEL 1.7 MG/DL (1.8-2.4); POTASSIUM SERUM 3.7 MEQ/L (3.5-5.1); SODIUM LEVEL 139 MEQ/L (136-145)
[2017-06-29] MEDS: ATORVASTATIN 20 MG TAB PO (08:57)
[2017-06-29] MEDS: ASPIRIN 81 MG ENTERIC TAB PO (08:57)
[2017-06-29] MEDS: metFORMIN XR 500MG TAB *GLUCOPHAGE XR PO ×2 (08:57→20:13)
[2017-06-29] MEDS: PARoxetine 20 MG TAB PO (08:57)
[2017-06-29] MEDS: GABAPENTIN 300 MG CAP PO ×3 (08:57→20:14)
[2017-06-29] MEDS: DOCUSATE SODIUM 100 MG CAP PO ×2 (08:57→20:09)
[2017-06-29] MEDS: PANTOPRAZOLE 40MG TAB (PROTONIX) PO (08:57)
[2017-06-29] MEDS: LABETALOL 200 MG TAB PO ×2 (08:58→20:13)
[2017-06-29] MEDS: MIRALAX *UNIT DOSE* 17GM PACKET PO (08:58)
[2017-06-29 11:06] LABS: BEDSIDE GLUCOSE 206 MG/DL (83-110)
[2017-06-29] MEDS: ACETAMINOPHEN TAB 650MG DOSE (2X325MG) PO (13:54)
[2017-06-29 16:51] LABS: BEDSIDE GLUCOSE 132 MG/DL (83-110)
[2017-06-29] MEDS: MELOXICAM (MOBIC) 7.5 MG TAB PO (17:33)
[2017-06-29 20:29] LABS: BEDSIDE GLUCOSE 178 MG/DL (83-110)
[2017-06-30] MEDS: PERCOCET 5MG/325MG TAB PO ×3 (04:43→21:39)
[2017-06-30] MEDS: HEPARIN SOD (PORCINE) 5000 UNITS/ML VIAL SC ×3 (04:44→20:44)
[2017-06-30] MEDS: ACETAMINOPHEN TAB 650MG DOSE (2X325MG) PO (06:12)
[2017-06-30] MEDS: PARoxetine 20 MG TAB PO (08:23)
[2017-06-30] MEDS: PANTOPRAZOLE 40MG TAB (PROTONIX) PO (08:23)
[2017-06-30] MEDS: ATORVASTATIN 20 MG TAB PO (08:23)
[2017-06-30] MEDS: ASPIRIN 81 MG ENTERIC TAB PO (08:23)
[2017-06-30] MEDS: DOCUSATE SODIUM 100 MG CAP PO ×2 (08:23→20:43)
[2017-06-30] MEDS: GABAPENTIN 300 MG CAP PO ×3 (08:23→20:42)
[2017-06-30] MEDS: LABETALOL 200 MG TAB PO ×2 (08:25→20:42)
[2017-06-30] MEDS: MELOXICAM (MOBIC) 7.5 MG TAB PO (08:25)
[2017-06-30] MEDS: oxyCODONE 5MG TAB PO ×2 (08:26→20:44)
[2017-06-30] MEDS: MIRALAX *UNIT DOSE* 17GM PACKET PO (08:26)
[2017-06-30] MEDS: metFORMIN XR 500MG TAB *GLUCOPHAGE XR PO ×2 (08:26→20:42)
[2017-06-30 12:25] LABS: BEDSIDE GLUCOSE 134 MG/DL (83-110)
[2017-06-30 17:20] LABS: BEDSIDE GLUCOSE 193 MG/DL (83-110)
[2017-06-30 20:33] LABS: BEDSIDE GLUCOSE 171 MG/DL (83-110)
[2017-07-01] MEDS: ACETAMINOPHEN TAB 650MG DOSE (2X325MG) PO (00:23)
[2017-07-01] MEDS: PERCOCET 5MG/325MG TAB PO ×3 (02:29→20:30)
[2017-07-01] MEDS: HEPARIN SOD (PORCINE) 5000 UNITS/ML VIAL SC ×3 (05:28→22:04)
[2017-07-01 07:11] LABS: HEMATOCRIT 31.2 % (36.0-47.0); HEMOGLOBIN 10.4 g/dl (12.0-16.0); MEAN CORPUSCULAR HEMOGLOBIN 29.8 pg (27.0-33.0); MEAN CORPUSCULAR HGB CONC 33.3 g/dl (32.0-36.5); MEAN CORPUSCULAR VOLUME 89.4 fl (80.0-96.0); PLATELET COUNT, AUTOMATED 246 10^3/uL (150-450); RED BLOOD COUNT 3.49 10^6/uL (4.00-5.40); RED CELL DISTRIBUTION WIDTH 13.2 % (11.5-14.5); WHITE BLOOD COUNT 8.3 10^3/uL (4.0-10.0)
[2017-07-01 07:23] LABS: ANION GAP 8 MEQ/L (8-16); BLOOD UREA NITROGEN 15 MG/DL (7-18); CALCIUM LEVEL 8.6 MG/DL (8.8-10.2); CARBON DIOXIDE LEVEL 27 MEQ/L (21-32); CHLORIDE LEVEL 105 MEQ/L (98-107); CREATININE FOR GFR 0.59 MG/DL (0.55-1.30); GLOMERULAR FILTRATION RATE > 60.0 (>39); GLUCOSE, FASTING 131 MG/DL (70-100); POTASSIUM SERUM 3.1 MEQ/L (3.5-5.1); SODIUM LEVEL 140 MEQ/L (136-145)
[2017-07-01] MEDS: DOCUSATE SODIUM 100 MG CAP PO ×2 (08:35→20:28)
[2017-07-01] MEDS: PARoxetine 20 MG TAB PO (08:35)
[2017-07-01] MEDS: MIRALAX *UNIT DOSE* 17GM PACKET PO (08:35)
[2017-07-01] MEDS: ASPIRIN 81 MG ENTERIC TAB PO (08:35)
[2017-07-01] MEDS: PANTOPRAZOLE 40MG TAB (PROTONIX) PO (08:35)
[2017-07-01] MEDS: GABAPENTIN 300 MG CAP PO ×3 (08:35→20:28)
[2017-07-01] MEDS: ATORVASTATIN 20 MG TAB PO (08:35)
[2017-07-01] MEDS: MELOXICAM (MOBIC) 7.5 MG TAB PO (08:36)
[2017-07-01] MEDS: metFORMIN XR 500MG TAB *GLUCOPHAGE XR PO ×2 (08:36→20:28)
[2017-07-01] MEDS: LABETALOL 200 MG TAB PO ×2 (08:38→20:29)
[2017-07-01] MEDS: oxyCODONE 5MG TAB PO ×2 (09:49→23:21)
[2017-07-01 11:58] LABS: BEDSIDE GLUCOSE 156 MG/DL (83-110)
[2017-07-01] MEDS: POTASSIUM CHLORIDE 10 MEQ SR TABLET PO ×2 (16:06→19:19)
[2017-07-01 17:21] LABS: BEDSIDE GLUCOSE 126 MG/DL (83-110)
[2017-07-01 20:02] LABS: BEDSIDE GLUCOSE 109 MG/DL (83-110)
[2017-07-02] MEDS: PERCOCET 5MG/325MG TAB PO (03:35)
[2017-07-02] MEDS: HEPARIN SOD (PORCINE) 5000 UNITS/ML VIAL SC ×3 (05:31→21:09)
[2017-07-02 06:44] LABS: BEDSIDE GLUCOSE 140 MG/DL (83-110)
[2017-07-02] MEDS: GABAPENTIN 300 MG CAP PO ×3 (08:35→20:07)
[2017-07-02] MEDS: MELOXICAM (MOBIC) 7.5 MG TAB PO (08:36)
[2017-07-02] MEDS: metFORMIN XR 500MG TAB *GLUCOPHAGE XR PO ×2 (08:36→20:08)
[2017-07-02] MEDS: DOCUSATE SODIUM 100 MG CAP PO ×2 (08:36→20:07)
[2017-07-02] MEDS: PANTOPRAZOLE 40MG TAB (PROTONIX) PO (08:37)
[2017-07-02] MEDS: PARoxetine 20 MG TAB PO (08:37)
[2017-07-02] MEDS: ATORVASTATIN 20 MG TAB PO (08:37)
[2017-07-02] MEDS: LABETALOL 200 MG TAB PO ×2 (08:37→20:08)
[2017-07-02] MEDS: oxyCODONE 5MG TAB PO ×2 (08:37→20:09)
[2017-07-02] MEDS: MIRALAX *UNIT DOSE* 17GM PACKET PO (08:37)
[2017-07-02] MEDS: ASPIRIN 81 MG ENTERIC TAB PO (08:37)
[2017-07-02 12:24] LABS: BEDSIDE GLUCOSE 130 MG/DL (83-110)
[2017-07-02 17:05] LABS: BEDSIDE GLUCOSE 123 MG/DL (83-110)
[2017-07-02 20:01] LABS: BEDSIDE GLUCOSE 116 MG/DL (83-110)
[2017-07-03] MEDS: PERCOCET 5MG/325MG TAB PO ×2 (03:50→17:44)
[2017-07-03] MEDS: HEPARIN SOD (PORCINE) 5000 UNITS/ML VIAL SC ×3 (05:39→21:39)
[2017-07-03 06:50] LABS: BEDSIDE GLUCOSE 144 MG/DL (83-110)
[2017-07-03] MEDS: GABAPENTIN 300 MG CAP PO ×3 (08:16→20:11)
[2017-07-03] MEDS: PARoxetine 20 MG TAB PO (08:16)
[2017-07-03] MEDS: MELOXICAM (MOBIC) 7.5 MG TAB PO (08:16)
[2017-07-03] MEDS: ASPIRIN 81 MG ENTERIC TAB PO (08:17)
[2017-07-03] MEDS: ATORVASTATIN 20 MG TAB PO (08:17)
[2017-07-03] MEDS: DOCUSATE SODIUM 100 MG CAP PO ×2 (08:17→19:54)
[2017-07-03] MEDS: LABETALOL 200 MG TAB PO ×2 (08:17→20:11)
[2017-07-03] MEDS: metFORMIN XR 500MG TAB *GLUCOPHAGE XR PO ×2 (08:17→20:11)
[2017-07-03] MEDS: oxyCODONE 5MG TAB PO ×2 (08:18→20:12)
[2017-07-03] MEDS: MIRALAX *UNIT DOSE* 17GM PACKET PO (08:18)
[2017-07-03] MEDS: PANTOPRAZOLE 40MG TAB (PROTONIX) PO (08:18)
[2017-07-03 11:58] LABS: BEDSIDE GLUCOSE 143 MG/DL (83-110)
[2017-07-03 17:07] LABS: BEDSIDE GLUCOSE 115 MG/DL (83-110)
[2017-07-03 19:59] LABS: BEDSIDE GLUCOSE 137 MG/DL (83-110)
[2017-07-04] MEDS: PERCOCET 5MG/325MG TAB PO (02:16)
[2017-07-04] MEDS: HEPARIN SOD (PORCINE) 5000 UNITS/ML VIAL SC ×2 (05:36→13:52)
[2017-07-04 06:37] LABS: BEDSIDE GLUCOSE 115 MG/DL (83-110)
[2017-07-04] MEDS: DOCUSATE SODIUM 100 MG CAP PO (07:08)
[2017-07-04] MEDS: GABAPENTIN 300 MG CAP PO (08:27)
[2017-07-04] MEDS: metFORMIN XR 500MG TAB *GLUCOPHAGE XR PO (08:27)
[2017-07-04] MEDS: PANTOPRAZOLE 40MG TAB (PROTONIX) PO (08:27)
[2017-07-04] MEDS: MELOXICAM (MOBIC) 7.5 MG TAB PO (08:27)
[2017-07-04] MEDS: ASPIRIN 81 MG ENTERIC TAB PO (08:28)
[2017-07-04] MEDS: ATORVASTATIN 20 MG TAB PO (08:28)
[2017-07-04] MEDS: LABETALOL 200 MG TAB PO (08:28)
[2017-07-04] MEDS: PARoxetine 20 MG TAB PO (08:28)
[2017-07-04] MEDS: oxyCODONE 5MG TAB PO (08:28)
[2017-07-04] MEDS: MIRALAX *UNIT DOSE* 17GM PACKET PO (08:39)
[2017-07-04 12:05] LABS: BEDSIDE GLUCOSE 104 MG/DL (83-110)
== END 2017-07-04 15:10 | disposition left against medical advice (07) | DRG 534 ==
LOC: M MS4PR 06-29 06:19 → M ED 15:12 → M ED INP 18:38 → M MS4PR 20:52
DX: S79.192A Other physeal fracture of lower end of left femur, initial encounter for closed fracture (principal); I50.32 Chronic diastolic (congestive) heart failure; N17.9 Acute kidney failure, unspecified; I69.320 Aphasia following cerebral infarction; I11.0 Hypertensive heart disease with heart failure; E11.9 Type 2 diabetes mellitus without complications; E78.5 Hyperlipidemia, unspecified; Z79.82 Long term (current) use of aspirin; Z79.84 Long term (current) use of oral hypoglycemic drugs; Z88.8 Allergy status to other drugs, medicaments and biological substances; Z90.49 Acquired absence of other specified parts of digestive tract; Z90.710 Acquired absence of both cervix and uterus; Z90.722 Acquired absence of ovaries, bilateral; W01.0XXA Fall on same level from slipping, tripping and stumbling without subsequent striking against object, initial encounter; Y93.E8 Activity, other personal hygiene

== ENCOUNTER 2017-07-13 06:18 | Emergency (ER) | payer MEDICARE ==
[2017-07-13] MEDS ORDERED: EPINEPHrine 1MG/10ML SYRINGE 1.5IN (06:19)
[2017-07-13] MEDS: EPINEPHrine 1MG/10ML SYRINGE 1.5IN IV ×2 (06:22→06:48)
== END 2017-07-13 09:10 | disposition expired ==
LOC: M ED 06:18
DX: I46.9 Cardiac arrest, cause unspecified (principal)
CPT/HCPCS: 36415